=== PATIENT | female | born 1965 | race African-American/Black ===

== ENCOUNTER 2017-01-29 15:25 | Emergency (ER) | payer BC ==
[~2017-01-29] VITALS: Ht 167.6 cm; Wt 82.6 kg
--- NOTE | 2017-01-29 16:16 | EKG ---
[address] [place] [address] Test Date: 2017-01-29 Test Time: 15:30:27 Pat Name: KIMBERLY OLIVER Department: Room: Gender: F Freight Forwarder: : 1965 Requested By: ROMA BENITEZ Order Number: [id number] Reading MD: Measurements Intervals Gonzales Rate: 101 P: 35 HI: 170 QRS: 26 QRSD: 80 T: 24 QT: 378 QTc: 491 Interpretive Statements SINUS TACHYCARDIA LEFT ATRIAL ABNORMALITY T ABNORMALITY IN ANTEROSEPTAL LEADS ABNORMAL ECG RI6.01 No previous ECG available for comparison
[2017-01-29 16:46] LABS: BASO % 1 % (0-3); EOS % 1 % (0-3); HEMATOCRIT 44.4 % (36.0-47.0); HEMOGLOBIN 14.9 g/dL (12.0-15.5); LYMPH # 2.2 x10^3/uL (1.0-4.8); LYMPH % 28 % (24-48); MEAN CORPUSCULAR HEMOGLOBIN 34 pg (25-35); MEAN CORPUSCULAR HGB CONC 34 g/dL (31-37); MEAN CORPUSCULAR VOLUME 102 fL (79-100); MONO % 9 % (0-9); NEUT % 61 % (31-73); PLATELET COUNT 138 x10^3/uL (140-400); RED BLOOD COUNT 4.36 x10^6/uL (3.50-5.40); RED CELL DISTRIBUTION WIDTH 12.3 % (11.5-14.5); WHITE BLOOD COUNT 7.6 x10^3/uL (4.0-11.0)
[2017-01-29] MEDS ORDERED: LABETALOL 20 MG/4 ML DISP.SYRIN. IVP ONE (17:00)
[2017-01-29] MEDS ORDERED: ASPIRIN 81 MG TAB.CHEW PO ONE (17:00)
[2017-01-29 17:53] LABS: CALCIUM 9.9 mg/dL (8.5-10.1); CREATININE 0.6 mg/dL (0.6-1.0); GFR 128.6; MAGNESIUM 1.6 mg/dL (1.8-2.4); POTASSIUM 3.3 mmol/L (3.5-5.1)
[2017-01-29 18:16] LABS: NEG OBC UR NEG; POS OBC UR POS
--- NOTE | 2017-01-29 19:25 | PHYS DOC ---
Past Medical History Past Medical History: Hypertension Past Surgical History: Alcohol Use: Occasionally Drug Use: None Adult General Chief Complaint Chief Complaint: OTHER COMPLAINTS HPI HPI Patient is a 51 year old female who presents with palpitations and abnormal EKG. Patient seen at Dr. Reaves's office this afternoon, was sent to the emergency department after EKG showed nonspecific ST changes. Patient denies any chest discomfort or shortness of breath. She does report having some nausea every day for the past 2 or 3 months; she has not taken anything for the symptoms as the nausea will always quickly resolved on its own. Patient noted to be hypertensive on arrival. She says she is prescribed to hypertension medications. She is taking her metoprolol but not taking amlodipine. Patient is a nonsmoker. She does have family history of heart disease. She has had 324 mg of aspirin between what she took at home when she is given in the doctor's office today. Review of Systems Review of Systems Constitutional: Denies fever or chills Eyes: Denies change in visual acuity or eye pain HENT: Denies nasal congestion or sore throat Respiratory: Denies cough or shortness of breath Cardiovascular: Palpitations. Denies chest pain GI: Intermittent nausea. Denies abdominal pain, vomiting, bloody stools or diarrhea : Denies dysuria or hematuria Musculoskeletal: Denies back pain or joint pain Integument: Denies rash or skin lesions Neurologic: Denies headache, focal weakness or sensory changes Current Medications Current Medications Current Medications Medications (Trade) Dose Ordered Sig/Raheem Start Time Stop Time Status Last Admin Dose Admin Aspirin (Children'S Aspirin) 324 mg 1X ONCE 01/29/17 17:00 01/29/17 17:01 DC Labetalol HCl (Normodyne) 20 mg 1X ONCE 01/29/17 17:00 01/29/17 17:01 DC 01/29/17 17:01 20 MG Magnesium Oxide (Magnesium Oxide) 400 mg 1X ONCE 01/29/17 19:45 01/29/17 19:46 01/29/17 19:38 400 MG Potassium Chloride (Klor-Con) 40 meq 1X ONCE 01/29/17 19:45 01/29/17 19:46 01/29/17 19:38 40 MEQ Allergies Allergies Allergies Coded Allergies Type Severity Reaction Last Updated Verified Penicillins Allergy Unknown Rash 01/29/17 Yes codeine Allergy Unknown Nausea and Vomiting 01/29/17 Yes erythromycin base Allergy Unknown Nausea and Vomiting 01/29/17 Yes Physical Exam Physical Exam Constitutional: Well developed, well nourished, no acute distress, non-toxic appearance HENT: Normocephalic, atraumatic, bilateral external ears normal Eyes: EOMI, conjunctiva normal, no discharge Neck: Normal range of motion, no stridor Cardiovascular: Heart rate normal, regular rhythm, no murmur Lungs & Thorax: Bilateral breath sounds clear to auscultation Abdomen: Bowel sounds normal, soft, non-distended, no TTP Skin: Warm, dry, no erythema, no rash Extremities: No obvious deformity, no edema Neurologic: Alert and oriented X 3, no gross deficits noted Current Patient Data Vital Signs Vital Signs Date Time Temp Pulse Resp B/P Pulse Ox O2 Delivery O2 Flow Rate FiO2 01/29/17 19:30 111 20 163/97 98 Room Air Lab Values Laboratory Tests Test 01/29/17 15:32 01/29/17 15:45 01/29/17 17:30 Urine Test Negative (NEG) White Blood Count 7.6x10^3/uL (4.0-11.0) Red Blood Count 4.36x10^6/uL (3.50-5.40) Hemoglobin 14.9g/dL (12.0-15.5) Hematocrit 44.4% (36.0-47.0) Mean Corpuscular Volume 102fL (79-100) H Mean Corpuscular Hemoglobin 34pg (25-35) Mean Corpuscular Hemoglobin Concent 34g/dL (31-37) Red Cell Distribution Width 12.3% (11.5-14.5) Platelet Count 138x10^3/uL (140-400) L Neutrophils (%) (Auto) 61% (31-73) Lymphocytes (%) (Auto) 28% (24-48) Monocytes (%) (Auto) 9% (0-9) Eosinophils (%) (Auto) 1% (0-3) Basophils (%) (Auto) 1% (0-3) Neutrophils # (Auto) 4.7x10^3uL (1.8-7.7) Lymphocytes # (Auto) 2.2x10^3/uL (1.0-4.8) Monocytes # (Auto) 0.7x10^3/uL (0.0-1.1) Eosinophils # (Auto) 0.0x10^3/uL (0.0-0.7) Basophils # (Auto) 0.0x10^3/uL (0.0-0.2) Sodium Level 138mmol/L (136-145) Potassium Level 3.3mmol/L (3.5-5.1) L Chloride Level 95mmol/L (98-107) L Carbon Dioxide Level 31mmol/L (21-32) Anion Gap 12 (6-14) Blood Urea Nitrogen 8mg/dL (7-20) Creatinine 0.6mg/dL (0.6-1.0) Estimated GFR (Cockcroft-Gault) 128.6 Glucose Level 251mg/dL (70-99) H Calcium Level 9.9mg/dL (8.5-10.1) Magnesium Level 1.6mg/dL (1.8-2.4) L Troponin I Quantitative 0.018ng/mL (0.000-0.055) Thyroid Stimulating Hormone (TSH) 2.643uIU/mL (0.358-3.74) Laboratory Tests 01/29/17 15:45 Laboratory Tests 01/29/17 17:30 EKG EKG EKG (my read): sinus rhythm, rate 101, normal axis, QTc 491ms, nonspecific ST/T changes Radiology/Procedures Radiology/Procedures CXR (my read): Subcentimeter nodule in R lower lung field. Otherwise no acute process. Course & Med Decision Making Course & Med Decision Making Pertinent Labs and Imaging studies reviewed. (See chart for details) Patient is 51-year-old female who presents from Dr. Reaves's office with report of abnormal EKG. Patient asymptomatic at this time. Will repeat EKG. Will also obtain chest x-ray, labs to evaluate. Dose of labetalol ordered for high blood pressure, however before the nurse gave it her blood pressure had improved. Labs notable for few mild electrolytes abnormalities, such as low magnesium and potassium. Oral replacement ordered. Troponin within normal limits. Imaging results as above. Discussed results with patient, who remains asymptomatic. Discussed with javi Johnson to send patient home and will have her follow up in his clinic as outpatient. Patient given strict return precautions. Dragon Disclaimer Dragon Disclaimer This electronic medical record was generated, in whole or in part, using a voice recognition dictation system. Departure Departure Impression: Primary Impression: Palpitations Disposition: 01 HOME, SELF-CARE Admitting Physician: Edwin Reaves Condition: STABLE Referrals: EDWIN REAVES MD (PCP) Patient Instructions: Palpitations Additional Instructions: Thank you for allowing us to provide care today in the Emergency Department. Schedule a follow up appointment with your primary care doctor. Return promptly to the Emergency Department if you develop any new or concerning symptoms, such as chest discomfort or shortness of breath. ROMA BENITEZ MD Jan 29, 2017 19:25
[2017-01-29 19:30] VITALS: BP 163/97
[2017-01-29] MEDS ORDERED: MAGNESIUM OXIDE 400 MG TABLET PO ONE (19:45)
[2017-01-29] MEDS ORDERED: POTASSIUM CHLORIDE 20 MEQ TABLET.ER. PO ONE (19:45)
--- NOTE | 2017-01-30 08:57 | RAD ---
Chest, 2 views, 01/29/2017: History: Palpitations The heart size and pulmonary vascularity are normal. There is mild tortuosity of the thoracic aorta. There is a dense nodule projected over the right lower chest which is probably of granulomatous origin. No acute infiltrates are seen. There is no evidence of pleural fluid. Moderate spurring is present in the spine. IMPRESSION: 1. Probable calcified granuloma in the right lung base. 2. No acute cardiopulmonary abnormality is detected.
== END 2017-01-29 19:45 | disposition home or self-care (01) ==
LOC: ER 15:25
DX: R00.2 Palpitations (principal); R11.0 Nausea; I10 Essential (primary) hypertension; Z88.0 Allergy status to penicillin; Z88.1 Allergy status to other antibiotic agents; Z88.5 Allergy status to narcotic agent
CPT/HCPCS: 36415; 71020; 80048; 81025; 83735; 84443; 84484; 85027; 93005; 96374; 99285; J3490

== ENCOUNTER → 2017-02-26 | Outpatient (CLI) | payer BC ==
[2017-01-29 19:30] VITALS: BP 163/97
--- NOTE | 2017-02-26 15:36 | CARD ---
APPROVED REPORT EXAM: Two-dimensional and M-mode echocardiogram with Doppler and color Doppler. Other Information Quality : GoodHR: 92bpm Rhythm : NSR INDICATION Abnormal ECG 2D DIMENSIONS RVDd3.4 (2.9-3.5cm)Left Atrium(2D)2.9 (1.6-4.0cm) IVSd0.9 (0.7-1.1cm)Aortic Root(2D)3.3 (2.0-3.7cm) LVDd5.7 (3.9-5.9cm)LVOT Diameter2.4 (1.8-2.4cm) PWd1.0 (0.7-1.1cm)LVDs3.8 (2.5-4.0cm) FS (%) 33.3 %SV97.7 ml LVEF(%)61.2 (>50%) Aortic Valve AoV Peak [place].108.8cm/sAoV VTI19.5cm AO Peak GR.4.7mmHgLVOT Peak [place].99.0cm/s LVOT VTI 15.72cmAO Mean GR.3mmHg MILES (VMAX)4.78nt0WBM (VTI)3.71cm2 Mitral Valve MV E Cpbtaykl06.6cm/sMV DECEL SMQH07et MV A Dbtvpoto04.8cm/sMV E Mean Gr.2mmHg MV URY50txU/A Ratio0.6 MV A Emittikn279doPXB (PHT)8.93cm2 TDI E/Lateral E'8.2E/Medial E'13.4 Pulmonary Valve PV Peak Ohhyvctp59.0cm/sPV Peak Grad.2mmHg RVOT VTI11.4cm Tricuspid Valve TR P. Mqxqstzd836qx/sRAP XBRFLODZ12fiIo TR Peak Gr.21mmHg Pulmonary Vein S1 Nxhujvvh84.8cm/sD2 Fanihjso91.6cm/s PVa dquiqthz30uwla LEFT VENTRICLE The left ventricle is normal size. There is normal left ventricular wall thickness. Left ventricle sy stolic function is normal. The Ejection Fraction is 55-60%. There is normal LV segmental wall motion. Transmitral Doppler flow pattern is Grade I-abnormal relaxation pattern. There is no ventricular sep rodolfo defect visualized. RIGHT VENTRICLE The right ventricle is normal size. The right ventricular systolic function is normal. ATRIA The left atrium size is normal. The right atrium size is normal. The interatrial septum is intact wit h no evidence for an atrial septal defect or patent foramen ovale as noted on 2-D or Doppler imaging. AORTIC VALVE The aortic valve is normal in structure and function. Doppler and Color Flow revealed no significant aortic regurgitation. There is no significant aortic valvular stenosis. MITRAL VALVE The mitral valve is normal in structure and function. There is no evidence of mitral valve prolapse. There is no mitral valve stenosis. Doppler and Color Flow revealed no mitral valve regurgitation note d. TRICUSPID VALVE The tricuspid valve is normal in structure and function. Doppler and Color Flow revealed trace to mil d tricuspid regurgitation. The PA pressure was estimated at 24 mmHg. PULMONIC VALVE The pulmonary valve is normal in structure and function. Doppler and Color Flow revealed trace to mil d pulmonic valvular regurgitation. There is no pulmonic valvular stenosis. GREAT VESSELS The aortic root is normal in size. The ascending aorta is normal in size. Normal pulmonary venous andre w (Doppler). The IVC is normal in size and collapses >50% with inspiration. PERICARDIAL EFFUSION There is no pleural effusion. There is no evidence of significant pericardial effusion. Critical Notification Critical Value: No <Conclusion> The left ventricle is normal size. Left ventricle systolic function is normal. The Ejection Fraction is 55-60%. There is no significant aortic valvular stenosis. Doppler and Color Flow revealed no significant aortic regurgitation. Doppler and Color Flow revealed no mitral valve regurgitation noted. Doppler and Color Flow revealed trace to mild tricuspid regurgitation. The PA pressure was estimated at 24 mmHg. Doppler and Color Flow revealed trace to mild pulmonic valvular regurgitation.
== END | disposition home or self-care (01) ==
LOC: ECHO 11:00
PROVIDERS: ATTEND Nurse Practitioner
DX: I07.1 Rheumatic tricuspid insufficiency (principal)
CPT/HCPCS: 93306

== ENCOUNTER → 2019-02-19 | Outpatient (CLI) | payer BC ==
--- NOTE | 2019-02-19 10:49 | RAD ---
DATE: 02/19/2019 EXAM: MAMMO CHANEL SCREENING BILATERAL HISTORY: Screening COMPARISON: None This study was interpreted with the benefit of Computerized Aided Detection (CAD). Breast Density: FATTY The breast parenchyma is primarily fatty replaced. Breast parenchyma level density A. FINDINGS: Lymph node is present at the far posterior right cc view. No suspicious calcifications or mass. No distortion. IMPRESSION: No suspicious finding. BI-RADS CATEGORY: 1 NEGATIVE RECOMMENDED FOLLOW-UP: 12M 12 MONTH FOLLOW-UP PQRS compliance statement: Patient information was entered into a reminder system with a target due date in one year for the next mammogram. Mammography is a sensitive method for finding small breast cancers, but it does not detect them all and is not a substitute for careful clinical examination. A negative mammogram does not negate a clinically suspicious finding and should not result in delay in biopsying a clinically suspicious abnormality. "Our facility is accredited by the [employer] Mammography Program."
== END | disposition home or self-care (01) ==
LOC: MAMMO 08:38
PROVIDERS: ATTEND Internal Medicine
DX: Z12.31 Encounter for screening mammogram for malignant neoplasm of breast (principal)
CPT/HCPCS: 77063; 77067

== ENCOUNTER 2021-03-08 16:26 | Inpatient (IN) | payer BC ==
[~2021-03-08] VITALS: Ht 167.6 cm; Wt 83.2 kg
[2021-03-08 18:38] LABS: BASO # 0.1 x10^3/uL (0.0-0.2); BASO % 1 % (0-3); EOS % 0 % (0-3); HEMATOCRIT 38.4 % (36.0-47.0); HEMOGLOBIN 13.2 g/dL (12.0-15.5); LYMPH # 1.8 x10^3/uL (1.0-4.8); LYMPH % 19 % (24-48); MEAN CORPUSCULAR HEMOGLOBIN 36 pg (25-35); MEAN CORPUSCULAR HGB CONC 35 g/dL (31-37); MEAN CORPUSCULAR VOLUME 103 fL (79-100); MONO # 0.6 x10^3/uL (0.0-1.1); MONO % 6 % (0-9); NEUT # 6.7 x10^3/uL (1.8-7.7); NEUT % 74 % (31-73); PLATELET COUNT 188 x10^3/uL (140-400); RED BLOOD COUNT 3.71 x10^6/uL (3.50-5.40); RED CELL DISTRIBUTION WIDTH 13.3 % (11.5-14.5); WHITE BLOOD COUNT 9.2 x10^3/uL (4.0-11.0)
[2021-03-08 18:39] LABS: BILIRUBIN,URINE SMALL (NEG); CLARITY,URINE CLEAR; COLOR,URINE AMBER; NITRITE,URINE NEGATIVE (NEG); PH,URINE 8.5 (<5.0-8.0); PROTEIN,URINE >=300 mg/dL (NEG-TRACE)
[2021-03-08] MEDS ORDERED: fentaNYL PF VIAL 100 MCG/2 ML VIAL IV ONE (19:00)
[2021-03-08] MEDS ORDERED: IV NORMAL SALINE 1000ML BAG 1,000 ML IV ONE (19:00)
[2021-03-08] MEDS ORDERED: ONDANSETRON PF 4 MG/2 ML VIAL. IV ONE (19:00)
[2021-03-08 19:03] LABS: HYALINE CASTS, URINE MODERATE /HPF
[2021-03-08 19:04] LABS: BACTERIA,URINE FEW /HPF (0-FEW)
[2021-03-08 19:06] LABS: CALCIUM 8.6 mg/dL (8.5-10.1); CREATININE 0.7 mg/dL (0.6-1.0); GFR 105.5
[2021-03-08 19:16] LABS: ALBUMIN 4.2 g/dL (3.4-5.0); ALBUMIN/GLOBULIN RATIO 0.8 (1.0-1.7); TOTAL BILIRUBIN 1.3 mg/dL (0.2-1.0); TOTAL PROTEIN 9.4 g/dL (6.4-8.2)
[2021-03-08] MEDS ORDERED: CONTRAST GIVEN. MC PRN (19:45)
[2021-03-08] MEDS ORDERED: IOHEXOL 300 MG/ML 100ML VIAL. IV ONE (19:45)
[2021-03-08] MEDS ORDERED: PROCHLORPERAZINE 10 MG/2 ML VIAL. ONE (19:52)
[2021-03-08] MEDS ORDERED: PROCHLORPERAZINE 10 MG/2 ML VIAL. IV ONE (20:00)
--- NOTE | 2021-03-08 20:20 | RAD ---
EXAM: CT Abdomen and Pelvis with IV contrast CLINICAL HISTORY: epigastric, RUQ abd pain COMPARISON: none TECHNIQUE: Helical CT of the abdomen and pelvis was performed following the administration of intrave nous contrast. Axial, coronal and sagittal reformatted images were generated. PQRS compliance statement - One or more of the following individualized dose reduction techniques wer e utilized for this study: 1. Automated exposure control 2. Adjustment of the mA and/or kV according to patient size 3. Use of iterative reconstruction technique FINDINGS: Lower Chest: Calcified granuloma middle lobe. Lung bases are otherwise clear. Abdomen and Pelvis: Hepatic hypoattenuation, fatty liver. Liver is enlarged. Gallbladder is normal. No biliary ductal dil atation. Pancreas is normal. Spleen is unremarkable. Adrenal glands are normal. Symmetric nephrograms . No focal renal lesion. No hydronephrosis. No hydroureter. Bladder is unremarkable. Moderate colonic stool content is seen. No small or large bowel dilatation. No bowel obstruction. Ana Maria endix is not seen although no significant pericecal inflammatory changes are seen. No abdominal or pelvic ascites. No abdominal or pelvic lymphadenopathy. Degenerative changes of lower lumbar spine are seen. No aggressive osseous lesion. Bones: No aggressive osseous lesion is seen. Hip joint degenerative changes are seen. IMPRESSION: 1. Hepatic hypoattenuation, fatty liver. Hepatomegaly. 2. High density material dependently within the gallbladder likely sludge. 3. Moderate colonic stool content can be correlated for possible constipation. 4. No bowel obstruction. Electronically signed by: Jad Sr MD (03/08/2021 8:18 PM) [facility]
[2021-03-08] MEDS ORDERED: MAGNESIUM SULFATE 2GM 50 ML IV ONE ×2 (20:30→21:30)
[2021-03-08] MEDS ORDERED: ONDANSETRON PF 4 MG/2 ML VIAL. IV PRN (21:15)
--- NOTE | 2021-03-08 22:01 | RAD ---
EXAM: RIGHT UPPER QUADRANT ULTRASOUND. HISTORY: Right upper quadrant pain. COMPARISON: Today's CT. FINDINGS: Sonographic evaluation of the right upper quadrant was performed. Hyperechogenicity of the hepatic parenchyma indicates severe diffuse hepatic steatosis. The liver is enlarged measuring 23 cm. There are no focal lesions. The gallbladder is unremarkable without evidence of stones, wall thickening or pericholecystic fluid. There is no sonographic Oneal sign. The common duct measures 4 mm. The pancreas is obscured by bow el gas and overlying structures. It is unremarkable on today's CT. The right kidney measures 13.2 cm. Cortical thickness and echogenicity are preserved. There is no hyd ronephrosis. The visualized portions of the abdominal aorta and inferior vena cava are grossly patent and normal i n caliber. IMPRESSION: 1. Severe diffuse hepatic steatosis. Moderate hepatomegaly. 2. Negative gallbladder. Electronically signed by: Herb Dykes MD (03/08/2021 9:59 PM) [facility]
--- NOTE | 2021-03-08 23:52 | ED.ADGEN ---
Past Medical History Past Medical History: Diabetes-Type II, High Cholesterol, Hypertension Past Surgical History: , Tubal ligation Smoking Status: Never Smoker Alcohol Use: Heavy Additional Information: LIQUOR EVERYDAY-TEQUILA Drug Use: None General Adult EDM: Chief Complaint: NAUSEA/VOMITING/DIARRHEA HPI: HPI: Patient is a 56 year old AA female who presents to the ER from her PCP, Dr. Chavez's office, with complaints of epigastric and RUQ abd pain, nausea, vom iting, and diarrhea for the last 3 days. Pt states she always has diarrhea due to her Metformin use but states she has not been taking her Metformin for the last few days due to vomtiing and the diarrhea persists. Pt denies any blood in her vomit or stools. Pt states she has not been able to keep food or liquids down for the last 3 days. She denies any fever, lower abdominal pain, dysuria, hematuria, increased urinary frequency, back pain, chest pain, palpitations, headache, numbness, tingling, or weakness. She denies any shortness of breath, wheezing, chest pain, or indigestion. She currently rates her pain a 8/10 on the pain scale, she denies any alleviating or exacerbating factors. Review of Systems: Review of Systems: Complete ROS is negative unless otherwise stated in the HPI Current Medications: Current Medications Medications (Trade) Dose Ordered Sig/Raheem Start Time Stop Time Status Last Admin Dose Admin Fentanyl Citrate (Fentanyl 2ml Vial) 50 mcg 1X ONCE 03/08/21 19:00 03/08/21 19:01 DC 03/08/21 19:35 50 MCG Info (CONTRAST GIVEN -- Rx MONITORING) 1 each PRN DAILY PRN 03/08/21 19:45 03/10/21 19:44 Iohexol (Omnipaque 300 Mg/ml) 75 ml 1X ONCE 03/08/21 19:45 03/08/21 19:46 DC Magnesium Sulfate 50 ml @ 25 mls/hr 1X ONCE 03/08/21 20:30 03/08/21 22:29 DC 03/08/21 21:06 25 MLS/HR Ondansetron HCl (Zofran) 4 mg 1X ONCE 03/08/21 19:00 03/08/21 19:01 DC 03/08/21 19:36 4 MG Prochlorperazine Edisylate (Compazine) 10 mg 1X ONCE 03/08/21 20:00 03/08/21 20:01 DC 03/08/21 19:59 10 MG Sodium Chloride 1,000 ml @ 1,000 mls/hr 1X ONCE 03/08/21 19:00 03/08/21 19:59 DC 03/08/21 19:36 1,000 MLS/HR Physical Exam: PE: Constitutional: Well developed, well nourished, no acute distress, non-toxic appearance. [] HENT: Normocephalic, atraumatic, bilateral external ears normal, oropharynx moist, no oral exudates, nose normal. [] Eyes: PERRLA, EOMI, conjunctiva normal, no discharge. [] Neck: Normal range of motion, no tenderness, supple, no stridor. [] Cardiovascular:Heart rate regular rhythm, no murmur [] Lungs & Thorax: Bilateral breath sounds clear to auscultation [] Abdomen: Bowel sounds normal, soft, no tenderness, no masses, no pulsatile masses. [] Skin: Warm, dry, no erythema, no rash. [] Back: No tenderness, no CVA tenderness. [] Extremities: No tenderness, no cyanosis, no clubbing, ROM intact, no edema. [] Neurologic: Alert and oriented X 3, normal motor function, normal sensory function, no focal deficits noted. [] Psychologic: Affect normal, judgement normal, mood normal. [] Current Patient Data: Labs: Laboratory Tests Test 03/08/21 17:33 White Blood Count 9.2 x10^3/uL (4.0-11.0) Red Blood Count 3.71 x10^6/uL (3.50-5.40) Hemoglobin 13.2 g/dL (12.0-15.5) Hematocrit 38.4 % (36.0-47.0) Mean Corpuscular Volume 103 fL (79-100) H Mean Corpuscular Hemoglobin 36 pg (25-35) H Mean Corpuscular Hemoglobin Concent 35 g/dL (31-37) Red Cell Distribution Width 13.3 % (11.5-14.5) Platelet Count 188 x10^3/uL (140-400) Neutrophils (%) (Auto) 74 % (31-73) H Lymphocytes (%) (Auto) 19 % (24-48) L Monocytes (%) (Auto) 6 % (0-9) Eosinophils (%) (Auto) 0 % (0-3) Basophils (%) (Auto) 1 % (0-3) Neutrophils # (Auto) 6.7 x10^3/uL (1.8-7.7) Lymphocytes # (Auto) 1.8 x10^3/uL (1.0-4.8) Monocytes # (Auto) 0.6 x10^3/uL (0.0-1.1) Eosinophils # (Auto) 0.0 x10^3/uL (0.0-0.7) Basophils # (Auto) 0.1 x10^3/uL (0.0-0.2) Urine Collection Type Unknown Urine Color Carol Urine Clarity Clear Urine pH 8.5 (<5.0-8.0) Urine Specific [place] 1.020 (1.000-1.030) Urine Protein >=300 mg/dL (NEG-TRACE) Urine Glucose (UA) Negative mg/dL (NEG) Urine Ketones (Stick) Trace mg/dL (NEG) Urine Blood Negative (NEG) Urine Nitrite Negative (NEG) Urine Bilirubin Small (NEG) Urine Urobilinogen Dipstick 1.0 mg/dL (0.2 mg/dL) Urine Leukocyte Esterase Small (NEG) Urine RBC 3-5 /HPF (0-2) Urine WBC 5-10 /HPF (0-4) Urine Squamous Epithelial Cells Many /LPF Urine Bacteria Few /HPF (0-FEW) Urine Hyaline Casts Moderate /HPF Urine Mucus Marked /LPF Sodium Level 141 mmol/L (136-145) Potassium Level 3.0 mmol/L (3.5-5.1) L Chloride Level 98 mmol/L (98-107) Carbon Dioxide Level 31 mmol/L (21-32) Anion Gap 12 (6-14) Blood Urea Nitrogen 5 mg/dL (7-20) L Creatinine 0.7 mg/dL (0.6-1.0) Estimated GFR (Cockcroft-Gault) 105.5 BUN/Creatinine Ratio 7 (6-20) Glucose Level 176 mg/dL (70-99) H Calcium Level 8.6 mg/dL (8.5-10.1) Magnesium Level 1.0 mg/dL (1.8-2.4) L Total Bilirubin 1.3 mg/dL (0.2-1.0) H Aspartate Amino Transferase (AST) 90 U/L (15-37) H Alanine Aminotransferase (ALT) 61 U/L (14-59) H Alkaline Phosphatase 103 U/L (46-116) Total Protein 9.4 g/dL (6.4-8.2) H Albumin 4.2 g/dL (3.4-5.0) Albumin/Globulin Ratio 0.8 (1.0-1.7) L Lipase 173 U/L (73-393) Laboratory Tests 03/08/21 17:33 Laboratory Tests 03/08/21 17:33 Vital Signs: Vital Signs Date Time Temp Pulse Resp B/P (MAP) Pulse Ox O2 Delivery O2 Flow Rate FiO2 03/08/21 20:53 107 17 151/92 (111) 98 Nasal Cannula 2.0 03/08/21 17:29 98.6 98.6 EKG: EKG: [] Heart Score: C/O Chest Pain: No Risk Factors: Risk Factors: DM, Current or recent (<one month) smoker, HTN, HLP, family history of CAD, obesity. Risk Scores: Score 0 - 3: 2.5% MACE over next 6 weeks - Discharge Home Score 4 - 6: 20.3% MACE over next 6 weeks - Admit for Clinical Observation Score 7 - 10: 72.7% MACE over next 6 weeks - Early Invasive Strategies Radiology/Procedures: Radiology/Procedures: PROCEDURE: ABDOMEN LTD EXAM: RIGHT UPPER QUADRANT ULTRASOUND. HISTORY: Right upper quadrant pain. COMPARISON: Today's CT. FINDINGS: Sonographic evaluation of the right upper quadrant was performed. Hyperechogenicity of the hepatic parenchyma indicates severe diffuse hepatic steatosis. The liver is enlarged measuring 23 cm. There are no focal lesions. The gallbladder is unremarkable without evidence of stones, wall thickening or pericholecystic fluid. There is no sonographic Oneal sign. The common duct measures 4 mm. The pancreas is obscured by bowel gas and overlying structures. It is unremarkable on today's CT. The right kidney measures 13.2 cm. Cortical thickness and echogenicity are preserved. There is no hydronephrosis. The visualized portions of the abdominal aorta and inferior vena cava are grossly patent and normal in caliber. IMPRESSION: 1. Severe diffuse hepatic steatosis. Moderate hepatomegaly. 2. Negative gallbladder. PROCEDURE: CT ABD PELV W/ IV CONTRST ONLY EXAM: CT Abdomen and Pelvis with IV contrast CLINICAL HISTORY: epigastric, RUQ abd pain COMPARISON: none TECHNIQUE: Helical CT of the abdomen and pelvis was performed following the administration of intravenous contrast. Axial, coronal and sagittal reformatted images were generated. PQRS compliance statement - One or more of the following individualized dose reduction techniques were utilized for this study: 1. Automated exposure control 2. Adjustment of the mA and/or kV according to patient size 3. Use of iterative reconstruction technique FINDINGS: Lower Chest: Calcified granuloma middle lobe. Lung bases are otherwise clear. Abdomen and Pelvis: Hepatic hypoattenuation, fatty liver. Liver is enlarged. Gallbladder is normal. No biliary ductal dilatation. Pancreas is normal. Spleen is unremarkable. Adrenal glands are normal. Symmetric nephrograms. No focal renal lesion. No hydronephrosis. No hydroureter. Bladder is unremarkable. Moderate colonic stool content is seen. No small or large bowel dilatation. No bowel obstruction. Appendix is not seen although no significant pericecal inflammatory changes are seen. No abdominal or pelvic ascites. No abdominal or pelvic lymphadenopathy. Degenerative changes of lower lumbar spine are seen. No aggressive osseous lesion. Bones: No aggressive osseous lesion is seen. Hip joint degenerative changes are seen. IMPRESSION: 1. Hepatic hypoattenuation, fatty liver. Hepatomegaly. 2. High density material dependently within the gallbladder likely sludge. 3. Moderate colonic stool content can be correlated for possible constipation. 4. No bowel obstruction. Electronically signed by: Jad Sr MD (03/08/2021 8:18 PM) [facility] [] Course & Med Decision Making: Course & Med Decision Making Pertinent Labs and Imaging studies reviewed. (See chart for details) spoke with Dr. Chavez and advised of pt's labs and CT result. US of upper abd is pending. Pt continues to complain of epigastric pain and nausea. Will admit pt to med/tele for hypokalemia, hypomagnesia, nausea/vomiting, and upper abd pain. Will order another 2gm of IV magnesium and NS with 20 meq of KCL TRA 125 ml/hr. Repeat BMP and Magnesium at 0600. [] Fedeon Disclaimer: Margie Disclaimer: This electronic medical record was generated, in whole or in part, using a voice recognition dictation system. Departure Departure Impression: Primary Impression: Hypokalemia Additional Impressions: Hypomagnesemia Nausea & vomiting Upper abdominal pain Disposition: ADMITTED INPATIENT Admitting Physician: Sam Chavez Condition: STABLE Referrals: SAM CHAVEZ MD (PCP) Attending Signature Attending Signature I have participated in the care of this patient and I have reviewed and agree with all pertinent clinical information above including history, exam, and recommendations. Problem Qualifiers Additional Impressions: Nausea & vomiting Vomiting type: unspecified Vomiting Intractability: intractable Qualified Codes: R11.2 - Nausea with vomiting, unspecified ANTHONY ESPITIA [employer] Mar 08, 2021 23:52 WALI SCHULTZ DO Mar 09, 2021 13:21
[2021-03-08 23:55] VITALS: BP 122/84
[2021-03-09 03:02] VITALS: BP 140/96
[2021-03-09] MEDS ORDERED: AMLO-187 PO (04:02)
[2021-03-09] MEDS ORDERED: SITA100T PO (04:02)
[2021-03-09] MEDS ORDERED: GLIP5TAB10 PO (04:02)
[2021-03-09] MEDS ORDERED: ATOR20TA58 PO (04:02)
[2021-03-09] MEDS ORDERED: DULO30CA2 PO (04:02)
[2021-03-09 07:00] VITALS: BP 143/89
[2021-03-09 09:14] LABS: CALCIUM 7.5 mg/dL (8.5-10.1); CREATININE 0.6 mg/dL (0.6-1.0); GFR 126.1; POTASSIUM 3.4 mmol/L (3.5-5.1)
[2021-03-09] MEDS ORDERED: PROCHLORPERAZINE 10 MG/2 ML VIAL. IV PRN (09:30)
[2021-03-09] MEDS ORDERED: MAGNESIUM SULFATE 2GM 50 ML IV ONE (10:00)
[2021-03-09] MEDS: INSULIN LISPRO 300 UNITS/3 ML VIAL. SQ SCH ×2 (10:00→11:44)
--- NOTE | 2021-03-09 10:00 | PDOC ---
Provider Note Date of Service: DATE: 03/09/21 TIME: 09:59 Provider Note H&P dictated #[id number] Justifications for Admission Other Justification SAM REAVES MD Mar 09, 2021 10:00
[2021-03-09] MEDS: POTASSIUM CL 40MEQ D5-0.45NACL 1,000 ML IV SCH ×2 (10:26→21:28)
--- NOTE | 2021-03-09 10:45 | HP ---
ADMIT DATE: 03/08/2021 HISTORY OF PRESENT ILLNESS: This is a 56 years old -Italian female who has a history of alcoholism, stopped drinking alcohol on Sunday, but continued to have increased abdominal pain, intractable nausea, vomiting and diarrhea over the weekend. She has not been able to eat for the last 3 days. She came to the office yesterday and was continuously dry heaving. Because of the persistent nausea, vomiting and abdominal pain, the patient was sent to the Emergency Room. In the Emergency Room, the patient was noted to have a potassium of 3, magnesium of 1, AST 90, ALT 61, alkaline phosphatase 103, total protein 9.4, albumin 4.2, lipase 173, glucose 176, sodium 141, BUN 5, creatinine 0.7. WBC count was 9.2, hemoglobin 13.2, MCV 103. Urinalysis: Nitrite negative, 5-10 WBCs, few bacteria. CT scan of abdomen and pelvis showed hepatic hypoattenuation with fatty liver and hepatomegaly, high density material dependently within the gallbladder, likely sludge and moderate colonic stool. No bowel obstruction. Sonogram of the abdomen showed severe diffuse hepatic steatosis, moderate hepatomegaly. Negative gallbladder. Because of the intractable nausea and vomiting, including in the Emergency Room, where she did not respond to IV Zofran and was also given IV Compazine along with electrolyte imbalance and alcoholism, the patient was admitted for further evaluation and management. SYSTEMS REVIEW: The patient's nausea and vomiting are improving. Yesterday, she was given 4 g of IV magnesium and also IV fluids with potassium. She feels a little shaky, but denies any anxiety. Her abdominal pain is improving. Her diarrhea is improving. She has not been taking metformin for several days. She denies any cold, cough, congestion, chest pains or palpitations. Other systems reviewed and are negative. PAST MEDICAL HISTORY: The patient has a history of hypertension, hypokalemia, vitamin B12 deficiency, diabetes mellitus and alcoholism. She has a history of hyperlipidemia as well as depression. PAST SURGICAL HISTORY: She had a . ALLERGIES: THE PATIENT IS ALLERGIC TO CODEINE, ERYTHROMYCIN BASE AND PENICILLIN. FAMILY HISTORY: Brother has coronary artery disease, premature. Father had hypertension, diabetes mellitus type 2. Mother has hypertension and diabetes mellitus too. SOCIAL HISTORY: No history of smoking. The patient has a history of alcoholism. MEDICATIONS: Include amlodipine 10 mg daily, atorvastatin 20 mg daily, biotin 1 mg daily, cyanocobalamin 5000 mcg sublingually daily, Cymbalta 30 mg daily, gabapentin 300 mg 3 capsules 3 times a day, glipizide 5 mg daily in a.m., hydrochlorothiazide 25 mg daily, Januvia 100 mg daily, magnesium oxide 400 mg 2 tablets t.i.d., metformin extended release 500 mg 1 tablet in a.m. and 2 tablets in p.m. with meals, potassium chloride 10 mEq daily, thiamine 100 mg daily. PHYSICAL EXAMINATION: VITAL SIGNS: Temperature max 99.2, pulse 102 per minute, respirations 16 per minute, blood pressure 155/90 mmHg on admission, now it is 143/80 mmHg. GENERAL: The patient is a middle-aged -Italian female who is alert, oriented x3, chronically ill and not in acute distress. EYES: Pupils reacting to light. Conjunctivae pale. Sclerae muddy. HENT: Unremarkable. NECK: Supple. JVP normal. No thyromegaly. Trachea midline. LUNGS: Clear. CARDIOVASCULAR: Tachycardia present. ABDOMEN: Soft, no tenderness this morning. No guarding, no rigidity. Bowel sounds present. Yesterday, she had significant tenderness in the epigastric area. EXTREMITIES: No edema. CENTRAL NERVOUS SYSTEM: Alert and oriented. There are no tremors. No anxiety. LABORATORY FINDINGS: As noted earlier. IMPRESSION: 1. Acute intractable vomiting. 2. Acute gastritis. 3. Severe hypomagnesemia. 4. Acute hypokalemia. 5. Hypertension. 6. Alcoholism. 7. Vitamin B12 deficiency. 8. Depression. 9. Hyperlipidemia. 10. Diabetes mellitus type 2. PLAN: 1. Alcoholism. Continue to monitor for withdrawal. IV lorazepam p.r.n. Correct electrolyte imbalance. Monitor for seizures. 2. Hypokalemia. Replace potassium. 3. Hypomagnesemia, replaced magnesium. 4. Diabetes mellitus type 2, monitor. The patient has not been taking metformin for some time. Hold glipizide, sliding scale insulin as needed. Monitor blood sugars. 5. Acute gastritis. 6. Fatty liver. Condition and treatment options and lab results and diagnostics discussed with the patient and the family. Consult Dr. Kimble for GI evaluation and management, discussed with Dr. Kimble. For details, please refer to the orders. I will also start her on IV Protonix. She is not a high risk for DVT at this time and with her intractable nausea and vomiting, I will not start her on subcutaneous heparin. For details, please refer to the orders. JW DR: Emilie TID: [id number]
[2021-03-09 11:00] VITALS: BP 153/103
--- NOTE | 2021-03-09 11:01 | PDOC2 ---
GI CONSULT Date of Service: DATE: 03/09/21 TIME: 10:52 Reason For Consult: vomiting HPI: HPI: 56 y/o female who has been ill since Sunday. Acute onset of n/v, denies precipitating events. Labs note macrocytosis, hypokalemia and hypomagnesemia, and abnormal LFTs. Imaging as below w/ fatty liver, possible GB sludge (on CT), moderate stool. No reflux, dysphagia, hematemesis, constipation, hematochezia, or melena. Has some epigastric discomfort currently. Some decreased appetite and a little weight loss over the past couple months. Chronically loose stools on metformin - this is basically stable, though mentions stool "comes out" at the same time as vomiting. No previous EGD or colonoscopy. No GB, pancreas, or PUD history. Just discussed fatty liver/hepatomegaly with primary doctor. NSAIDs in the past, stopped taking awhile ago. PMH: PMH: HTN, HLD, DM, depression , tubal ligation, CTR FH: Family History: No pertinent hx (no GI cancers) Social History: Smoke: No ALCOHOL: heavy (couple glasses daily) Drugs: None ROS: GEN: Denies fevers, chills, sweats HEENT: Denies blurred vision, sore throat CV: Denies chest pain RESP: Denies shortness of air, cough GI: Per HPI : Denies hematuria, dysuria ENDO: +weight loss NEURO: Denies confusion, dizziness MSK: Denies weakness, joint pain/swelling SKIN: Denies jaundice, pruritus Vitals: Vitals: Vital Signs Date Time Temp Pulse Resp B/P (MAP) Pulse Ox O2 Delivery O2 Flow Rate FiO2 03/09/21 08:30 Room Air 03/09/21 07:00 99.2 111 18 143/89 (107) 93 99.2 03/09/21 03:38 2.0 Labs: Labs: Laboratory Tests Test 03/08/21 17:33 03/09/21 07:50 03/09/21 08:00 White Blood Count 9.2 x10^3/uL (4.0-11.0) Red Blood Count 3.71 x10^6/uL (3.50-5.40) Hemoglobin 13.2 g/dL (12.0-15.5) Hematocrit 38.4 % (36.0-47.0) Mean Corpuscular Volume 103 fL (79-100) Mean Corpuscular Hemoglobin 36 pg (25-35) Mean Corpuscular Hemoglobin Concent 35 g/dL (31-37) Red Cell Distribution Width 13.3 % (11.5-14.5) Platelet Count 188 x10^3/uL (140-400) Neutrophils (%) (Auto) 74 % (31-73) Lymphocytes (%) (Auto) 19 % (24-48) Monocytes (%) (Auto) 6 % (0-9) Eosinophils (%) (Auto) 0 % (0-3) Basophils (%) (Auto) 1 % (0-3) Neutrophils # (Auto) 6.7 x10^3/uL (1.8-7.7) Lymphocytes # (Auto) 1.8 x10^3/uL (1.0-4.8) Monocytes # (Auto) 0.6 x10^3/uL (0.0-1.1) Eosinophils # (Auto) 0.0 x10^3/uL (0.0-0.7) Basophils # (Auto) 0.1 x10^3/uL (0.0-0.2) Urine Collection Type Unknown Urine Color Carol Urine Clarity Clear Urine pH 8.5 (<5.0-8.0) Urine Specific [place] 1.020 (1.000-1.030) Urine Protein >=300 mg/dL (NEG-TRACE) Urine Glucose (UA) Negative mg/dL (NEG) Urine Ketones (Stick) Trace mg/dL (NEG) Urine Blood Negative (NEG) Urine Nitrite Negative (NEG) Urine Bilirubin Small (NEG) Urine Urobilinogen Dipstick 1.0 mg/dL (0.2 mg/dL) Urine Leukocyte Esterase Small (NEG) Urine RBC 3-5 /HPF (0-2) Urine WBC 5-10 /HPF (0-4) Urine Squamous Epithelial Cells Many /LPF Urine Bacteria Few /HPF (0-FEW) Urine Hyaline Casts Moderate /HPF Urine Mucus Marked /LPF Sodium Level 141 mmol/L (136-145) 143 mmol/L (136-145) Potassium Level 3.0 mmol/L (3.5-5.1) 3.4 mmol/L (3.5-5.1) Chloride Level 98 mmol/L (98-107) 103 mmol/L (98-107) Carbon Dioxide Level 31 mmol/L (21-32) 32 mmol/L (21-32) Anion Gap 12 (6-14) 8 (6-14) Blood Urea Nitrogen 5 mg/dL (7-20) 4 mg/dL (7-20) Creatinine 0.7 mg/dL (0.6-1.0) 0.6 mg/dL (0.6-1.0) Estimated GFR (Cockcroft-Gault) 105.5 126.1 BUN/Creatinine Ratio 7 (6-20) Glucose Level 176 mg/dL (70-99) 175 mg/dL (70-99) Calcium Level 8.6 mg/dL (8.5-10.1) 7.5 mg/dL (8.5-10.1) Magnesium Level 1.0 mg/dL (1.8-2.4) 1.6 mg/dL (1.8-2.4) Total Bilirubin 1.3 mg/dL (0.2-1.0) Aspartate Amino Transf (AST/SGOT) 90 U/L (15-37) Alanine Aminotransferase (ALT/SGPT) 61 U/L (14-59) Alkaline Phosphatase 103 U/L (46-116) Total Protein 9.4 g/dL (6.4-8.2) Albumin 4.2 g/dL (3.4-5.0) Albumin/Globulin Ratio 0.8 (1.0-1.7) Lipase 173 U/L (73-393) Glucose (Fingerstick) 170 mg/dL (70-99) Allergies: Coded Allergies: Penicillins (Verified Allergy, Intermediate, Rash, 03/08/21) codeine (Verified Allergy, Mild, Nausea and Vomiting, 03/08/21) erythromycin base (Verified Allergy, Mild, Nausea and Vomiting, 03/08/21) Medications: Current Medications Medications (Trade) Dose Ordered Sig/Raheem Route PRN Reason Start Time Stop Time Status Last Admin Dose Admin Sodium Chloride 1,000 ml @ 1,000 mls/hr 1X ONCE IV 03/08/21 19:00 03/08/21 19:59 DC 03/08/21 19:36 Ondansetron HCl (Zofran) 4 mg 1X ONCE IV 03/08/21 19:00 03/08/21 19:01 DC 03/08/21 19:36 Fentanyl Citrate (Fentanyl 2ml Vial) 50 mcg 1X ONCE IV 03/08/21 19:00 03/08/21 19:01 DC 03/08/21 19:35 Prochlorperazine Edisylate (Compazine) 10 mg 1X ONCE IV 03/08/21 20:00 03/08/21 20:01 DC 03/08/21 19:59 Magnesium Sulfate 50 ml @ 25 mls/hr 1X ONCE IV 03/08/21 20:30 03/08/21 22:29 DC 03/08/21 21:06 Potassium Chloride/Sodium Chloride 1,000 ml @ 125 mls/hr Q8H IV 03/08/21 21:30 03/09/21 05:29 DC 03/08/21 22:43 Potassium Chloride/Dextrose/ Sod Cl 1,000 ml @ 100 mls/hr Q10H IV 03/09/21 10:00 03/09/21 10:26 Magnesium Sulfate 50 ml @ 25 mls/hr 1X ONCE IV 03/09/21 10:00 03/09/21 11:59 03/09/21 10:27 Imaging: Imaging: CT A/P IMPRESSION: 1. Hepatic hypoattenuation, fatty liver. Hepatomegaly. 2. High density material dependently within the gallbladder likely sludge. 3. Moderate colonic stool content can be correlated for possible constipation. 4. No bowel obstruction. Abd US IMPRESSION: 1. Severe diffuse hepatic steatosis. Moderate hepatomegaly. 2. Negative gallbladder. CBD 4mm. PE: GEN: NAD HEENT: Atraumatic, PERRL LUNGS: CTAB HEART: RRR ABD: NABS, S/ND, epigastric tenderness EXTREMITY: No edema SKIN: No rashes, no jaundice NEURO/PSYCH: A & O 3 A/P: A/P: N/v, epigastric pain - began 03/06 Macrocytosis, hypokalemia (better), hypomagnesemia (better), abnormal LFTs Decreased appetite, weight loss - ongoing CRC screen - none Chronic loose stools on metformin - stable Fatty liver/hepatomegaly Alcohol overuse, DM -- Agree w/ PPI. Will plan for EGD tomorrow. Check COVID per protocol. Can try clears today. Monitor for diarrhea, address if needed. Outpt screening colonoscopy. Should drink less. JENS SNYDER Mar 09, 2021 11:01
[2021-03-09] MEDS: PANTOPRAZOLE IV PUSH 40 MG VIAL. IVP SCH (11:34)
--- NOTE | 2021-03-09 11:48 | NUR ---
SW following. Discussed with RN, pt from home, room air, NPO. RN advised no SW needs at this time. SW will continue to follow.
[2021-03-09 15:00] VITALS: BP 173/110
[2021-03-09 19:00] VITALS: BP 151/97
[2021-03-09 23:32] VITALS: BP 157/99
[2021-03-10 03:16] VITALS: BP 121/79
[2021-03-10 06:34] LABS: BASO % 0 % (0-3); EOS # 0.1 x10^3/uL (0.0-0.7); EOS % 2 % (0-3); LYMPH # 1.3 x10^3/uL (1.0-4.8); LYMPH % 20 % (24-48); MEAN CORPUSCULAR HEMOGLOBIN 35 pg (25-35); MEAN CORPUSCULAR HGB CONC 33 g/dL (31-37); MEAN CORPUSCULAR VOLUME 105 fL (79-100); MONO # 0.4 x10^3/uL (0.0-1.1); MONO % 6 % (0-9); NEUT # 4.8 x10^3/uL (1.8-7.7); NEUT % 72 % (31-73); PLATELET COUNT 153 x10^3/uL (140-400); RED BLOOD COUNT 3.43 x10^6/uL (3.50-5.40); RED CELL DISTRIBUTION WIDTH 12.6 % (11.5-14.5); WHITE BLOOD COUNT 6.7 x10^3/uL (4.0-11.0)
[2021-03-10 07:00] VITALS: BP 131/88
[2021-03-10] MEDS ORDERED: IV RINGERS,LACTATED 1000ML 1,000 ML IV SCH (07:00)
[2021-03-10] MEDS: INSULIN LISPRO 300 UNITS/3 ML VIAL. SQ SCH (07:30)
[2021-03-10 08:31] LABS: ALBUMIN 3.5 g/dL (3.4-5.0); ALBUMIN/GLOBULIN RATIO 0.8 (1.0-1.7); CALCIUM 7.3 mg/dL (8.5-10.1); CREATININE 0.6 mg/dL (0.6-1.0); GFR 126.1; MAGNESIUM 1.4 mg/dL (1.8-2.4); POTASSIUM 3.5 mmol/L (3.5-5.1); TOTAL BILIRUBIN 1.2 mg/dL (0.2-1.0); TOTAL PROTEIN 7.9 g/dL (6.4-8.2)
[2021-03-10] MEDS: PANTOPRAZOLE IV PUSH 40 MG VIAL. IVP SCH (08:46)
[2021-03-10] MEDS: POTASSIUM CL 40MEQ D5-0.45NACL 1,000 ML IV SCH (08:46)
--- NOTE | 2021-03-10 10:18 | PDOC3 ---
IM DISCHARGE SUMMARY Date of Admission Date of Admission Date of Admission: Mar 08, 2021 at 21:04 Date of Discharge Date of Discharge March 10, 2021 Primary Diagnosis Primary Diagnosis 1. Acute intractable vomiting. 2. Acute gastritis. 3. Severe hypomagnesemia. 4. Acute hypokalemia. 5. Hypertension. 6. Alcoholism. 7. Vitamin B12 deficiency. 8. Depression. 9. Hyperlipidemia. 10. Diabetes mellitus type 2. Consults Consults Javed Kimble MD Procedures Procedures EGD Labs Labs Laboratory Tests Test 03/09/21 11:21 03/09/21 13:36 03/09/21 16:29 03/09/21 19:18 Glucose (Fingerstick) 177 mg/dL (70-99) H 182 mg/dL (70-99) H 200 mg/dL (70-99) H SARS-CoV-2 RNA (BRENDAN) Negative (Negative) SARS-CoV-2 Antigen (Rapid) Negative (NEGATIVE) Test 03/10/21 05:50 03/10/21 07:35 White Blood Count 6.7 x10^3/uL (4.0-11.0) Red Blood Count 3.43 x10^6/uL (3.50-5.40) L Hemoglobin 12.0 g/dL (12.0-15.5) Hematocrit 36.0 % (36.0-47.0) Mean Corpuscular Volume 105 fL (79-100) H Mean Corpuscular Hemoglobin 35 pg (25-35) Mean Corpuscular Hemoglobin Concent 33 g/dL (31-37) Red Cell Distribution Width 12.6 % (11.5-14.5) Platelet Count 153 x10^3/uL (140-400) Neutrophils (%) (Auto) 72 % (31-73) Lymphocytes (%) (Auto) 20 % (24-48) L Monocytes (%) (Auto) 6 % (0-9) Eosinophils (%) (Auto) 2 % (0-3) Basophils (%) (Auto) 0 % (0-3) Neutrophils # (Auto) 4.8 x10^3/uL (1.8-7.7) Lymphocytes # (Auto) 1.3 x10^3/uL (1.0-4.8) Monocytes # (Auto) 0.4 x10^3/uL (0.0-1.1) Eosinophils # (Auto) 0.1 x10^3/uL (0.0-0.7) Basophils # (Auto) 0.0 x10^3/uL (0.0-0.2) Sodium Level 139 mmol/L (136-145) Potassium Level 3.5 mmol/L (3.5-5.1) Chloride Level 100 mmol/L (98-107) Carbon Dioxide Level 29 mmol/L (21-32) Anion Gap 10 (6-14) Blood Urea Nitrogen 2 mg/dL (7-20) L Creatinine 0.6 mg/dL (0.6-1.0) Estimated GFR (Cockcroft-Gault) 126.1 BUN/Creatinine Ratio 3 (6-20) L Glucose Level 206 mg/dL (70-99) H Calcium Level 7.3 mg/dL (8.5-10.1) L Magnesium Level 1.4 mg/dL (1.8-2.4) L Total Bilirubin 1.2 mg/dL (0.2-1.0) H Aspartate Amino Transferase (AST) 125 U/L (15-37) H Alanine Aminotransferase (ALT) 66 U/L (14-59) H Alkaline Phosphatase 82 U/L (46-116) Total Protein 7.9 g/dL (6.4-8.2) Albumin 3.5 g/dL (3.4-5.0) Albumin/Globulin Ratio 0.8 (1.0-1.7) L Glucose (Fingerstick) 232 mg/dL (70-99) H Laboratory Tests 03/10/21 05:50 Laboratory Tests 03/10/21 05:50 Brief hospital course Brief hospital course This is a 56 years old -[place] female who has a history of alcoholism, stopped drinking alcohol on Sunday, but continued to have increased abdominal pain, intractable nausea, vomiting and diarrhea over the weekend. She has not been able to eat for the last 3 days. She came to the office yesterday and was continuously dry heaving. Because of the persistent nausea, vomiting and abdominal pain, the patient was sent to the Emergency Room. In the Emergency Room, the patient was noted to have a potassium of 3, magnesium of 1, AST 90, ALT 61, alkaline phosphatase 103, total protein 9.4, albumin 4.2, lipase 173, glucose 176, sodium 141, BUN 5, creatinine 0.7. WBC count was 9.2, hemoglobin 13.2, MCV 103. Urinalysis: Nitrite negative, 5-10 WBCs, few bacteria. CT scan of abdomen and pelvis showed hepatic hypoattenuation with fatty liver and hepatomegaly, high density material dependently within the gallbladder, likely sludge and moderate colonic stool. No bowel obstruction. Sonogram of the abdomen showed severe diffuse hepatic steatosis, moderate hepatomegaly. Negative gallbladder. Because of the intractable nausea and vomiting, including in the Emergency Room, where she did not respond to IV Zofran and was also given IV Compazine along with electrolyte imbalance and alcoholism, the patient was admitted for further evaluation and management. For more details regarding the past history, family history, social history, surgical history and other details, please refer to History and Physical. 1. Alcoholism. Continue to monitor for withdrawal. IV lorazepam p.r.n. Correct electrolyte imbalance. Monitor for seizures. 2. Hypokalemia. Replace potassium. 3. Hypomagnesemia, replaced magnesium. 4. Diabetes mellitus type 2, monitor. The patient has not been taking metformin for some time. Hold glipizide, sliding scale insulin as needed. Monitor blood sugars. 5. Acute gastritis. 6. Fatty liver. Condition and treatment options and lab results and diagnostics discussed with the patient and the family. Consult Dr. Kimble for GI evaluation and management, discussed with Dr. Kimble. For details, please refer to the orders. I will also start her on IV Protonix. at this time and with her intractable nausea and vomiting, Patient is going to have an EGD later today and the diet will be advanced after that. Magnesium level is 1.4 so we will replace magnesium. Potassium is 3.5. If she is able to tolerate diet after dinner then she will likely be discharged this evening to home. See me in the office in 3 days on Sunday. Patient is strongly advised to avoid drinking alcohol. She does not need anxiety medication such as Librium. Recheck labs in the office. Clinically improving. Her vomiting is better. Medications Medications reviewed and reconciled for discharge. Allergy Allergies Coded Allergies Type Severity Reaction Last Updated Verified Penicillins Allergy Intermediate Rash 03/08/21 Yes codeine Adverse Reaction Mild Nausea and Vomiting 03/10/21 Yes erythromycin base Adverse Reaction Mild Nausea and Vomiting 03/10/21 Yes Follow up in 5 days. DISPOSITION: Home Comments Discharge Management - 35 minutes. For other details please refer to discharge instructions Justicifation of Admission Dx: Justifications for Admission: Justification of Admission Dx: Comment: (Intractable vomiting) SAM REAVES MD Mar 10, 2021 10:18
[2021-03-10] MEDS ORDERED: PANT40TA77 PO (10:24)
[2021-03-10] MEDS ORDERED: ONDA4TAB12 PO (10:24)
[2021-03-10] MEDS ORDERED: MAGN400T5 PO (10:24)
--- NOTE | 2021-03-10 10:26 | DISCH ---
DISCHARGE INSTRUCTIONS Condition on Discharge Condition on Discharge: Stable Activity After Discharge Activity Instructions for Disc: Activity as tolerated Diet after Discharge Diet after Discharge: Cardiac (ADA) Checks after Discharge Checks after discharge: Check blood press - daily, Check blood sugar, ac/hs DC Comment: Avoid alcohol. Contacting the after DC Call your doctor for: Concerns you may have Follow-Up Follow up with: Dr.Pratip Reaves on Sunday SAM REAVES MD Mar 10, 2021 10:26
[2021-03-10] MEDS ORDERED: MAGNESIUM SULFATE 4GM 100 ML IV ONE (10:30)
[2021-03-10 11:00] VITALS: BP 134/99
[2021-03-10] MEDS ORDERED: INSULIN LISPRO 300 UNITS/3 ML VIAL. SQ SCH (11:30)
[2021-03-10] MEDS ORDERED: IV RINGERS,LACTATED 1000ML 1,000 ML IV ONE (12:30)
[2021-03-10] MEDS ORDERED: LIDOCAINE 2% PF 5 ML VIAL. ONE (13:44)
[2021-03-10] MEDS ORDERED: PROPOFOL 10 MG/ML (20ML) VIAL. IV ONE (13:44)
--- NOTE | 2021-03-10 14:04 | PDOC4 ---
PROCEDURE Procedure EGD/biopsies Indication: N, V, wt.loss, anorexia Meds: per anesthesia Findings: E--grade A esophagitis and non-obstructing ring at GE junction; not dilated as no symptoms. G--Mild antral erythema; biopsied. D--Normal to second portion. Lona. well. IMP: GERD Mild, asymptomatic Shatzki's Non-specific antral erythema, biopsied. REC: OK to go home. Continue PPI Await path. Needs outpatient colonoscopy for screening. ABA LARA MD Mar 10, 2021 14:04
[2021-03-10 15:30] VITALS: BP 138/89
--- NOTE | 2021-03-10 16:06 | NUR ---
Pt left unit at approx 1600 by wheelchair via private vehicle, accompanied by . Pt's IV removed without complication, VSS. Discharge paperwork discussed with pt, at bedside. Pt verbalizes understanding, additional questions addressed.
--- NOTE | 2021-03-14 18:09 | PATHOLOGY ---
[facility] Accession Number: [id number] . 01 Material submitted: . gastrointestinal site - ANTRUM BIOPSY . 01 Clinical history: . HYPOKALEMIA, HYPOMAGNESEMIA NAUSEA/VOMITING EGD . 02 Diagnosis: Gastric biopsies, antrum: - Chronic gastritis, mild. (M:tatiana; 03/14/2021) [facility] 03/14/2021 1045 Local . 02 Comment: Sections of the gastric biopsy reveal segments of gastric antral/body transition mucosa showing congestion and mild chronic inflammation. A properly controlled immunoperoxidase stain for Helicobacter is negative for Helicobacter organisms. (JPM:tatiana; 03/14/2021) . . Special stain performed: Immunoperoxidase stain for Helicobacter on A1 . 02 Electronically signed: . Kwame Fowler MD, Pathologist NPI- [id number] . 01 Gross description: . Received in formalin labeled "Trisha Plunkett, antrum biopsy" are 2 fragments of sher-brown soft tissue measuring 0.7 x 0.4 x 0.3 cm and 0.6 x 0.3 x 0.2 cm. The specimen is submitted entirely in A1. ([facility]; 03/11/2021) GZA/GZA 03/11/2021 1159 Local . 02 Pathologist provided ICD-10: K29.50 . 02 CPT . 932843, [id number] Specimen Comment: A courtesy copy of this report has been sent to [phone] Specimen Comment: [phone], Specimen Comment: Report sent to , / Performed at: [address], [place], [place] [id number] MD Arben Lee MD Phone: [phone] Performed at: [address] [id number] MD Kwame Fowler MD Phone: [phone]
== END 2021-03-10 16:08 | disposition home or self-care (01) | DRG 392 ==
LOC: ER 16:26 → 6 SOUTH 21:04
PROVIDERS: ADMIT Internal Medicine; ATTEND Internal Medicine
PROC: 0DB68ZX Excision of Stomach, Via Natural or Artificial Opening Endoscopic, Diagnostic (ICD-10-PCS; principal; 2021-03-10 13:30)
DX: K29.00 Acute gastritis without bleeding (principal); E87.6 Hypokalemia; E83.42 Hypomagnesemia; D75.89 Other specified diseases of blood and blood-forming organs; E11.9 Type 2 diabetes mellitus without complications; E53.8 Deficiency of other specified B group vitamins; E78.00 Pure hypercholesterolemia, unspecified; E78.5 Hyperlipidemia, unspecified; F32.9 Major depressive disorder, single episode, unspecified; I10 Essential (primary) hypertension; F10.20 Alcohol dependence, uncomplicated; Y90.9 Presence of alcohol in blood, level not specified; E87.8 Other disorders of electrolyte and fluid balance, not elsewhere classified; R16.0 Hepatomegaly, not elsewhere classified; Z20.822 Contact with and (suspected) exposure to COVID-19; K21.00 Gastro-esophageal reflux disease with esophagitis, without bleeding; K76.0 Fatty (change of) liver, not elsewhere classified; Z82.49 Family history of ischemic heart disease and other diseases of the circulatory system; Z83.3 Family history of diabetes mellitus; Z98.891 History of uterine scar from previous surgery; Z98.51 Tubal ligation status; Z88.5 Allergy status to narcotic agent; Z88.0 Allergy status to penicillin
CPT/HCPCS: 36415; 43239; 74177; 76705; 80048; 80053; 81001; 82962; 83690; 83735; 85025; 87086; 87426; 88305; 88342; 96361; 96365; 96366; 96375; 99285; C9113; J0780; J2405; J2704; J3010; J3475; J3480; J7030; J7120; U0003; U0005; G0378

== ENCOUNTER 2021-06-29 12:29 | Emergency (ER) | payer BC ==
[~2021-06-29] VITALS: Ht 167.6 cm; Wt 89.2 kg
[~2021-06-29 12:29] MED LIST: AMLO-187 PO; ATOR20TA58 PO; DULO30CA2 PO; GLIP5TAB10 PO; MAGN400T5 PO; ONDA4TAB12 PO; PANT40TA77 PO; SITA100T PO
[2021-06-29] MEDS ORDERED: IV NORMAL SALINE 1000ML BAG 1,000 ML IV ONE (13:00)
[2021-06-29 13:21] LABS: BASO # 0.1 x10^3/uL (0.0-0.2); BASO % 1 % (0-3); EOS # 0.1 x10^3/uL (0.0-0.7); EOS % 1 % (0-3); HEMATOCRIT 33.9 % (36.0-47.0); LYMPH # 1.6 x10^3/uL (1.0-4.8); LYMPH % 18 % (24-48); MEAN CORPUSCULAR HEMOGLOBIN 37 pg (25-35); MEAN CORPUSCULAR HGB CONC 35 g/dL (31-37); MEAN CORPUSCULAR VOLUME 104 fL (79-100); MONO # 0.7 x10^3/uL (0.0-1.1); MONO % 8 % (0-9); NEUT # 6.7 x10^3/uL (1.8-7.7); NEUT % 73 % (31-73); PLATELET COUNT 179 x10^3/uL (140-400); RED BLOOD COUNT 3.26 x10^6/uL (3.50-5.40); RED CELL DISTRIBUTION WIDTH 13.1 % (11.5-14.5); WHITE BLOOD COUNT 9.2 x10^3/uL (4.0-11.0)
[2021-06-29 13:27] LABS: CALCIUM 9.3 mg/dL (8.5-10.1); CREATININE 0.8 mg/dL (0.6-1.0); GFR 90.4; POTASSIUM 4.5 mmol/L (3.5-5.1)
[2021-06-29 13:33] LABS: ALBUMIN 3.6 g/dL (3.4-5.0); ALBUMIN/GLOBULIN RATIO 0.7 (1.0-1.7); MAGNESIUM 1.2 mg/dL (1.8-2.4); TOTAL BILIRUBIN 0.7 mg/dL (0.2-1.0); TOTAL PROTEIN 8.7 g/dL (6.4-8.2)
[2021-06-29] MEDS ORDERED: MAGNESIUM SULFATE 2GM 50 ML IV ONE (13:45)
[2021-06-29] MEDS ORDERED: INSULIN REGULAR 100 UNIT/ML 3ML VIAL. IV ONE (14:00)
--- NOTE | 2021-06-29 15:14 | PHYS DOC ---
Past Medical History Past Medical History: Diabetes-Type II, High Cholesterol, Hypertension Past Surgical History: , Tubal ligation Smoking Status: Never Smoker Alcohol Use: Heavy Additional Information: STOPPED DRINKING LAST SUNDAY Drug Use: None General Adult EDM: Chief Complaint: HYPERGLYCEMIA HPI: HPI: Patient is a 56 year old female with a history of diabetic, on insulin, was sent here from her family physician clinic due to elevated blood sugar while she was in the clinic at 483. Patient denies any abdominal pain, no nausea vomiting, no cough, no fever. Patient says she was recently discharged from [facility] due to depression anxiety. Patient denies suicidal ideation, denies most ideation. Patient was vaccinated for COVID-19 already. Review of Systems: Review of Systems: Constitutional: Denies fever or chills. [] Eyes: Denies change in visual acuity. [] HENT: Denies nasal congestion or sore throat. [] Respiratory: Denies cough or shortness of breath. [] Cardiovascular: Denies chest pain or edema. [] GI: Denies abdominal pain, nausea, vomiting, bloody stools or diarrhea. [] : Denies dysuria. [] Musculoskeletal: Denies back pain or joint pain. [] Integument: Denies rash. [] Neurologic: Denies headache, focal weakness or sensory changes. [] Endocrine: Denies polyuria or polydipsia. [] Lymphatic: Denies swollen glands. [] Psychiatric: Denies depression or anxiety. [] Heart Score: C/O Chest Pain: N/A Risk Factors: Risk Factors: DM, Current or recent (<one month) smoker, HTN, HLP, family history of CAD, obesity. Risk Scores: Score 0 - 3: 2.5% MACE over next 6 weeks - Discharge Home Score 4 - 6: 20.3% MACE over next 6 weeks - Admit for Clinical Observation Score 7 - 10: 72.7% MACE over next 6 weeks - Early Invasive Strategies Current Medications: Current Medications Medications (Trade) Dose Ordered Sig/Raheem Start Time Stop Time Status Last Admin Dose Admin Insulin Human Regular (HumuLIN R VIAL) 9 unit 1X ONCE 06/29/21 14:00 06/29/21 14:01 DC 06/29/21 14:24 9 UNIT Magnesium Sulfate 50 ml @ 25 mls/hr 1X ONCE 06/29/21 13:45 06/29/21 15:44 06/29/21 14:23 25 MLS/HR Sodium Chloride 1,000 ml @ 1,000 mls/hr 1X ONCE 06/29/21 13:00 06/29/21 13:59 DC 06/29/21 13:10 1,000 MLS/HR Allergies: Allergies: Allergies Coded Allergies Type Severity Reaction Last Updated Verified Penicillins Allergy Intermediate Rash 03/10/21 Yes codeine Adverse Reaction Mild Nausea and Vomiting 03/10/21 Yes erythromycin base Adverse Reaction Mild Nausea and Vomiting 03/10/21 Yes Physical Exam: PE: Constitutional: Well developed, well nourished, no acute distress, non-toxic appearance. [] HENT: Normocephalic, atraumatic, bilateral external ears normal, oropharynx moist, no oral exudates, nose normal. [] Eyes: PERRLA, EOMI, conjunctiva normal, no discharge. [] Neck: Normal range of motion, no tenderness, supple, no stridor. [] Cardiovascular:Heart rate regular rhythm, no murmur [] Lungs & Thorax: Bilateral breath sounds clear to auscultation [] Abdomen: Bowel sounds normal, soft, no tenderness, no masses, no pulsatile masses. [] Skin: Warm, dry, no erythema, no rash. [] Back: No tenderness, no CVA tenderness. [] Extremities: No tenderness, no cyanosis, no clubbing, ROM intact, no edema. [] Neurologic: Alert and oriented X 3, normal motor function, normal sensory function, no focal deficits noted. [] Psychologic: Affect normal, judgement normal, mood normal. [] Current Patient Data: Labs: Laboratory Tests Test 06/29/21 12:55 06/29/21 14:24 White Blood Count 9.2 x10^3/uL (4.0-11.0) Red Blood Count 3.26 x10^6/uL (3.50-5.40) L Hemoglobin 12.0 g/dL (12.0-15.5) Hematocrit 33.9 % (36.0-47.0) L Mean Corpuscular Volume 104 fL (79-100) H Mean Corpuscular Hemoglobin 37 pg (25-35) H Mean Corpuscular Hemoglobin Concent 35 g/dL (31-37) Red Cell Distribution Width 13.1 % (11.5-14.5) Platelet Count 179 x10^3/uL (140-400) Neutrophils (%) (Auto) 73 % (31-73) Lymphocytes (%) (Auto) 18 % (24-48) L Monocytes (%) (Auto) 8 % (0-9) Eosinophils (%) (Auto) 1 % (0-3) Basophils (%) (Auto) 1 % (0-3) Neutrophils # (Auto) 6.7 x10^3/uL (1.8-7.7) Lymphocytes # (Auto) 1.6 x10^3/uL (1.0-4.8) Monocytes # (Auto) 0.7 x10^3/uL (0.0-1.1) Eosinophils # (Auto) 0.1 x10^3/uL (0.0-0.7) Basophils # (Auto) 0.1 x10^3/uL (0.0-0.2) Sodium Level 134 mmol/L (136-145) L Potassium Level 4.5 mmol/L (3.5-5.1) Chloride Level 95 mmol/L (98-107) L Carbon Dioxide Level 29 mmol/L (21-32) Anion Gap 10 (6-14) Blood Urea Nitrogen 6 mg/dL (7-20) L Creatinine 0.8 mg/dL (0.6-1.0) Estimated GFR (Cockcroft-Gault) 90.4 BUN/Creatinine Ratio 8 (6-20) Glucose Level 413 mg/dL (70-99) H Calcium Level 9.3 mg/dL (8.5-10.1) Magnesium Level 1.2 mg/dL (1.8-2.4) L Total Bilirubin 0.7 mg/dL (0.2-1.0) Aspartate Amino Transferase (AST) 62 U/L (15-37) H Alanine Aminotransferase (ALT) 40 U/L (14-59) Alkaline Phosphatase 111 U/L (46-116) Total Protein 8.7 g/dL (6.4-8.2) H Albumin 3.6 g/dL (3.4-5.0) Albumin/Globulin Ratio 0.7 (1.0-1.7) L Acetone Level Neg (NEG) Glucose (Fingerstick) 311 mg/dL (70-99) H Laboratory Tests 06/29/21 12:55 Laboratory Tests 06/29/21 12:55 Vital Signs: Vital Signs Date Time Temp Pulse Resp B/P (MAP) Pulse Ox O2 Delivery O2 Flow Rate FiO2 06/29/21 13:06 99.4 108 22 154/80 (105) 98 Room Air 99.4 EKG: EKG: [] Radiology/Procedures: Radiology/Procedures: [] Course & Med Decision Making: Course & Med Decision Making Pertinent Labs and Imaging studies reviewed. (See chart for details) Patient is a 56-year-old female who present to ER due to elevated blood sugar, patient is not in DKA. Patient was given IV fluid in ER, her blood sugar improved to 311. Discussed with her family physician Dr. Reaves who wanted to admit patient to hospital. Informed patient of the plan of care, patient was agreeable to the plan of care. Dragon Disclaimer: Dragon Disclaimer: This electronic medical record was generated, in whole or in part, using a voice recognition dictation system. Departure Departure Impression: Primary Impression: Hyperglycemia Additional Impression: Hypomagnesemia Disposition: ADMITTED INPATIENT Admitting Physician: Sam Reaves Referrals: SAM REAVES MD (PCP) WALI SCHULTZ DO Jun 29, 2021 15:14
[2021-06-29 15:53] VITALS: BP 158/80
== END 2021-06-29 16:16 | disposition left against medical advice (07) ==
LOC: ER 12:29
DX: E11.65 Type 2 diabetes mellitus with hyperglycemia (principal); E83.42 Hypomagnesemia; E78.00 Pure hypercholesterolemia, unspecified; I10 Essential (primary) hypertension; F10.20 Alcohol dependence, uncomplicated; Z98.890 Other specified postprocedural states; Z98.51 Tubal ligation status; Z88.0 Allergy status to penicillin; Z88.5 Allergy status to narcotic agent; Z88.1 Allergy status to other antibiotic agents; Y90.0 Blood alcohol level of less than 20 mg/100 ml
CPT/HCPCS: 36415; 80053; 82010; 82962; 83735; 85025; 96361; 96365; 96366; 96375; 99284; J1815; J3475; J7030

== ENCOUNTER 2021-08-01 08:32 | Observation (INO) | payer BC ==
[~2021-08-01] VITALS: Ht 167.6 cm; Wt 86.1 kg
[~2021-08-01 08:32] MED LIST changes: +MAGN400T48 PO; -MAGN400T5 PO
[2021-08-01] MEDS ORDERED: ONDANSETRON PF 4 MG/2 ML VIAL. IVP ONE ×2 (09:00→11:00)
[2021-08-01] MEDS ORDERED: MORPHINE SULFATE 4 MG/ML INJ. IVP ONE (09:00)
[2021-08-01] MEDS ORDERED: IV NORMAL SALINE 1000ML BAG 1,000 ML IV ONE ×2 (09:00→12:30)
--- NOTE | 2021-08-01 09:09 | PHYS DOC ---
Past Medical History Past Medical History: Diabetes-Type II, High Cholesterol, Hypertension Past Surgical History: , Tubal ligation Smoking Status: Never Smoker Alcohol Use: Heavy Drug Use: None General Adult EDM: Chief Complaint: NAUSEA/VOMITING/DIARRHEA HPI: HPI: Patient is a 56 year old female with history of diabetes who presents with nausea, vomiting, abdominal pain. Started this morning abruptly after 4 AM. Upper abdominal pain. Cramping in nature. Does not radiate. No dysuria, urgency, frequency. States that she was feeling similarly approximately 3 weeks ago when she was admitted with high blood glucose. She did take her insulin this morning, unsure of the exact dose. Has been vomiting frequently. Yellow/green vomitus. Does complain of chills. Review of Systems: Review of Systems: Constitutional: Denies fever or chills. [] Eyes: Denies change in visual acuity. [] HENT: Denies nasal congestion or sore throat. [] Respiratory: Denies cough or shortness of breath. [] Cardiovascular: Denies chest pain or edema. [] GI: Reports nausea, vomiting, abdominal pain. [] : Denies dysuria. [] Musculoskeletal: Denies back pain or joint pain. [] Integument: Denies rash. [] Neurologic: Denies headache, focal weakness or sensory changes. [] Endocrine: Denies polyuria or polydipsia. [] Lymphatic: Denies swollen glands. [] Psychiatric: Denies depression or anxiety. [] Heart Score: C/O Chest Pain: No Risk Factors: Risk Factors: DM, Current or recent (<one month) smoker, HTN, HLP, family history of CAD, obesity. Risk Scores: Score 0 - 3: 2.5% MACE over next 6 weeks - Discharge Home Score 4 - 6: 20.3% MACE over next 6 weeks - Admit for Clinical Observation Score 7 - 10: 72.7% MACE over next 6 weeks - Early Invasive Strategies Current Medications: Current Medications Medications (Trade) Dose Ordered Sig/Raheem Start Time Stop Time Status Last Admin Dose Admin Morphine Sulfate (Morphine Sulfate) 4 mg 1X ONCE 08/01/21 09:00 08/01/21 09:01 DC Ondansetron HCl (Zofran) 4 mg 1X ONCE 08/01/21 09:00 08/01/21 09:01 DC Sodium Chloride 1,000 ml @ 1,000 mls/hr 1X ONCE 08/01/21 09:00 08/01/21 09:59 Allergies: Allergies: Allergies Coded Allergies Type Severity Reaction Last Updated Verified Penicillins Allergy Intermediate Rash 03/10/21 Yes codeine Adverse Reaction Mild Nausea and Vomiting 03/10/21 Yes erythromycin base Adverse Reaction Mild Nausea and Vomiting 03/10/21 Yes Physical Exam: PE: Constitutional: Frequently retching and vomiting. Green liquid material. Diap horetic. Ill-appearing. [] HENT: Normocephalic, atraumatic, Eyes: conjunctiva normal, no discharge. [] Neck: Normal range of motion, no tenderness, supple, no stridor. [] Cardiovascular:Heart rate regular rhythm, no murmur [] Lungs & Thorax: Bilateral breath sounds clear to auscultation [] Abdomen: Upper abdominal tenderness to palpation. [] Skin: Warm, dry, no erythema, no rash. [] Back: No tenderness, no CVA tenderness. [] Extremities: No tenderness, no cyanosis, no clubbing, ROM intact, no edema. [] Neurologic: Alert and oriented X 3, normal motor function, normal sensory function, no focal deficits noted. [] Psychologic: Affect normal, judgement normal, mood normal. [] Current Patient Data: Labs: Laboratory Tests Test 08/01/21 08:59 Glucose (Fingerstick) 316 mg/dL (70-99) H EKG: EKG: [] Radiology/Procedures: Radiology/Procedures: [] Impression: [facility] [address] [place], [place] [id number] IMAGING REPORT Signed PATIENT: KIMBERLY OLIVER AACCOUNT: [id number] : 1965 LOCATION: ER AGE: 56 SEX: F EXAM STATUS: REG ER ORD. PHYSICIAN: VIBHA TRUONG MD REASON: upper abd pain, vomiting green colored liquid PROCEDURE: CT ABD PELV W/ IV CONTRST ONLY EXAM: Abdomen and pelvis CT with intravenous contrast. HISTORY: Pain. Emesis. TECHNIQUE: Computed tomographic images of the abdomen and pelvis were obtained following the administration of intravenous contrast. Multiplanar reformatting was performed. *One or more of the following individualized dose reduction techniques were utilized for this examination: 1. Automated exposure control. 2. Adjustment of the mA and/or kV according to patient size. 3. Use of iterative reconstruction technique. COMPARISON: 03/08/2021. FINDINGS: Evaluation of the lower thorax demonstrates a calcified granuloma within the right middle lobe. There is no infiltrate or pleural effusion. There is hepatomegaly and hepatic steatosis. No focal hepatic lesion is seen. The gal lbladder, pancreas and adrenal glands are unremarkable. There is a splenule adjacent to an otherwise unremarkable spleen. The kidneys are unremarkable. There are few colonic diverticula. There is no evidence of diverticulitis. There is no appendicitis. There is no bowel obstruction or abnormal bowel wall thickening. The bladder, uterus and ovaries are unremarkable. The aorta is no rmal in caliber. There are stable mesenteric and retroperitoneal lymph nodes. There is degenerative change involving the spine. There is grade 1 anterolisthesis of L4 on L5. IMPRESSION: 1. No acute abdominal or pelvic finding. 2. Hepatomegaly and hepatic steatosis. Electronically signed by: Anne Rosas MD (08/01/2021 11:12 AM) [facility] DICTATED and SIGNED BY: ANNE ROSAS MD DATE: 08/01/21 [id number] 0 Course & Med Decision Making: Course & Med Decision Making Pertinent Labs and Imaging studies reviewed. (See chart for details) Patient 56-year-old female who is diabetic presents with nausea, vomiting, and abdominal pain that was abrupt onset. On arrival is ill-appearing, diaphoretic, and actively vomiting. We will treat pain and nausea, give IV fluids, check labs, UA, abdominal CT. Byrrh-ed-hisl glucose 318 on arrival. 0909 No DKA A few wbc and bacteria on UA, but without urinary symptoms. WIll not treat for UTI. CT shows no evidence of acute pathology. Unclear etiology of nausea Will continue to treat n/v and re-evaluate to determine most appropriate disposition. 1140 Nausea has been intractable through several rounds of IV zofran, compazine, benadryl. Will be admitted to Dr. Chavez. Dr. Chavez has requested GI consultation, for which I placed an order. [id number] Margie Disclaimer: Margie Disclaimer: This electronic medical record was generated, in whole or in part, using a voice recognition dictation system. Departure Departure Impression: Primary Impression: Intractable nausea and vomiting Additional Impression: Hyperglycemia Disposition: ADMITTED INPATIENT Admitting Physician: Sam Chavez Condition: STABLE Referrals: SAM CHAVEZ MD (PCP) VIBHA TRUONG MD Aug 01, 2021 09:09
[2021-08-01 10:25] LABS: BASO # 0.1 x10^3/uL (0.0-0.2); BASO % 1 % (0-3); EOS % 0 % (0-3); HEMATOCRIT 36.9 % (36.0-47.0); HEMOGLOBIN 12.7 g/dL (12.0-15.5); LYMPH # 0.5 x10^3/uL (1.0-4.8); LYMPH % 5 % (24-48); MEAN CORPUSCULAR HEMOGLOBIN 36 pg (25-35); MEAN CORPUSCULAR HGB CONC 34 g/dL (31-37); MEAN CORPUSCULAR VOLUME 104 fL (79-100); MONO # 0.3 x10^3/uL (0.0-1.1); MONO % 3 % (0-9); NEUT # 8.8 x10^3/uL (1.8-7.7); NEUT % 92 % (31-73); PLATELET COUNT 223 x10^3/uL (140-400); RED BLOOD COUNT 3.56 x10^6/uL (3.50-5.40); RED CELL DISTRIBUTION WIDTH 13.4 % (11.5-14.5); WHITE BLOOD COUNT 9.6 x10^3/uL (4.0-11.0)
[2021-08-01 10:36] LABS: CALCIUM 8.9 mg/dL (8.5-10.1); GFR 69.9; POTASSIUM 3.7 mmol/L (3.5-5.1)
[2021-08-01 10:39] LABS: BILIRUBIN,URINE NEGATIVE (NEG); COLOR,URINE YELLOW; NITRITE,URINE NEGATIVE (NEG); PH,URINE 7.5 (<5.0-8.0); PROTEIN,URINE 100 mg/dL (NEG-TRACE)
[2021-08-01 10:40] LABS: CLARITY,URINE CLEAR
[2021-08-01 10:41] LABS: BACTERIA,URINE FEW /HPF (0-FEW); WBC,URINE OCC /HPF (0-4)
[2021-08-01 10:42] LABS: ALBUMIN 4.3 g/dL (3.4-5.0); ALBUMIN/GLOBULIN RATIO 0.9 (1.0-1.7); TOTAL BILIRUBIN 0.6 mg/dL (0.2-1.0); TOTAL PROTEIN 9.1 g/dL (6.4-8.2)
[2021-08-01] MEDS ORDERED: CONTRAST GIVEN. MC PRN (11:00)
[2021-08-01] MEDS ORDERED: IOHEXOL 300 MG/ML 100ML VIAL. IV ONE (11:00)
--- NOTE | 2021-08-01 11:14 | RAD ---
EXAM: Abdomen and pelvis CT with intravenous contrast. HISTORY: Pain. Emesis. TECHNIQUE: Computed tomographic images of the abdomen and pelvis were obtained following the administ ration of intravenous contrast. Multiplanar reformatting was performed. *One or more of the following individualized dose reduction techniques were utilized for this examina tion: 1. Automated exposure control. 2. Adjustment of the mA and/or kV according to patient size. 3. Use of iterative reconstruction technique. COMPARISON: 03/08/2021. FINDINGS: Evaluation of the lower thorax demonstrates a calcified granuloma within the right middle l obe. There is no infiltrate or pleural effusion. There is hepatomegaly and hepatic steatosis. No foca l hepatic lesion is seen. The gallbladder, pancreas and adrenal glands are unremarkable. There is a s plenule adjacent to an otherwise unremarkable spleen. The kidneys are unremarkable. There are few colonic diverticula. There is no evidence of diverticulitis. There is no appendicitis. There is no bowel obstruction or abnormal bowel wall thickening. The bladder, uterus and ovaries are unremarkable. The aorta is normal in caliber. There are stable mesenteric and retroperitoneal lymph n odes. There is degenerative change involving the spine. There is grade 1 anterolisthesis of L4 on L5. IMPRESSION: 1. No acute abdominal or pelvic finding. 2. Hepatomegaly and hepatic steatosis. Electronically signed by: Anne Montano MD (08/01/2021 11:12 AM) [facility]
[2021-08-01] MEDS ORDERED: PROCHLORPERAZINE 10 MG/2 ML VIAL. IV ONE (12:30)
[2021-08-01] MEDS ORDERED: diphenhydrAMINE 50 MG/ML VIAL IVP ONE (12:30)
[2021-08-01] MEDS ORDERED: LIDO:MAALOX 1:1 20 ML SINGLE DOSE. PO PRN (13:15)
--- NOTE | 2021-08-01 15:33 | PDOC2 ---
GI CONSULT Date of Service: DATE: 08/01/21 TIME: 15:18 Reason For Consult: intractable vomiting HPI: HPI: 56 y/o female who we saw in 02/2021 for vomiting and weight loss. EGD at that time showed GERD (grade A esophagitis), mild Schatzki's ring (not dilated as asymptomatic), and non-specific antral erythema. Antral biopsy showed mild chronic gastritis (negative for H. pylori). To ER today w/ n/v that began at 5:00 a.m. Denies precipitating events. Didn't feel very well yesterday so didn't eat. Describes bilious emesis and now has diffuse abdominal discomfort attributed to retching. Takes a pill PRN for GERD (does not recognize names of PPIs - pantoprazole on summary list). Denies dysphagia, hematemesis, diarrhea, constipation, hematochezia, and melena. Probably has lost an additional 4-5 pounds. Has had a couple episodes of n/v since we have seen, but feels well and eats normally in between these. No previous colonoscopy though previously recommended outpt follow-up for screening colonoscopy. Diverticulosis and hepatic steatosis/hepatomegaly on imaging. No GB, pancreas, or PUD history. GB was unremarkable on US in 02/2021. No NSAIDs. H/o DM on insulin (and no longer metformin). Says glucose is usually around 150-160 at home but can be as low as 43-48 and this morning was 316. She does not notice correlation between hyperglycemia and n/v. PMH: PMH: HTN, HLD, DM, depression , tubal ligation, CTR FH: Family History: No pertinent hx Social History: Smoke: No ALCOHOL: other (previously a couple glasses of wine daily, now has a couple gl asses on the weekend) Drugs: None ROS: GEN: Denies fevers, chills, sweats HEENT: Denies blurred vision, sore throat CV: Denies chest pain RESP: Denies shortness of air, cough GI: Per HPI : Denies hematuria, dysuria ENDO: +weight loss NEURO: Denies confusion, dizziness MSK: Denies weakness, joint pain/swelling SKIN: Denies jaundice, pruritus Vitals: Vitals: Vital Signs Date Time Temp Pulse Resp B/P (MAP) Pulse Ox O2 Delivery O2 Flow Rate FiO2 08/01/21 13:29 125 24 170/80 (110) 97 Room Air 08/01/21 08:44 98.7 98.7 Labs: Labs: Laboratory Tests Test 08/01/21 08:59 08/01/21 09:57 08/01/21 10:05 08/01/21 10:23 Glucose (Fingerstick) 316 mg/dL (70-99) White Blood Count 9.6 x10^3/uL (4.0-11.0) Red Blood Count 3.56 x10^6/uL (3.50-5.40) Hemoglobin 12.7 g/dL (12.0-15.5) Hematocrit 36.9 % (36.0-47.0) Mean Corpuscular Volume 104 fL (79-100) Mean Corpuscular Hemoglobin 36 pg (25-35) Mean Corpuscular Hemoglobin Concent 34 g/dL (31-37) Red Cell Distribution Width 13.4 % (11.5-14.5) Platelet Count 223 x10^3/uL (140-400) Neutrophils (%) (Auto) 92 % (31-73) Lymphocytes (%) (Auto) 5 % (24-48) Monocytes (%) (Auto) 3 % (0-9) Eosinophils (%) (Auto) 0 % (0-3) Basophils (%) (Auto) 1 % (0-3) Neutrophils # (Auto) 8.8 x10^3/uL (1.8-7.7) Lymphocytes # (Auto) 0.5 x10^3/uL (1.0-4.8) Monocytes # (Auto) 0.3 x10^3/uL (0.0-1.1) Eosinophils # (Auto) 0.0 x10^3/uL (0.0-0.7) Basophils # (Auto) 0.1 x10^3/uL (0.0-0.2) Sodium Level 139 mmol/L (136-145) Potassium Level 3.7 mmol/L (3.5-5.1) Chloride Level 94 mmol/L (98-107) Carbon Dioxide Level 32 mmol/L (21-32) Anion Gap 13 (6-14) Blood Urea Nitrogen 8 mg/dL (7-20) Creatinine 1.0 mg/dL (0.6-1.0) Estimated GFR (Cockcroft-Gault) 69.9 BUN/Creatinine Ratio 8 (6-20) Glucose Level 291 mg/dL (70-99) Calcium Level 8.9 mg/dL (8.5-10.1) Total Bilirubin 0.6 mg/dL (0.2-1.0) Aspartate Amino Transf (AST/SGOT) 43 U/L (15-37) Alanine Aminotransferase (ALT/SGPT) 47 U/L (14-59) Alkaline Phosphatase 118 U/L (46-116) Troponin I Quantitative < 0.017 ng/mL (0.000-0.055) Total Protein 9.1 g/dL (6.4-8.2) Albumin 4.3 g/dL (3.4-5.0) Albumin/Globulin Ratio 0.9 (1.0-1.7) Lipase 333 U/L (73-393) Urine Collection Type Unknown Urine Color Yellow Urine Clarity Clear Urine pH 7.5 (<5.0-8.0) Urine Specific [place] 1.020 (1.000-1.030) Urine Protein 100 mg/dL (NEG-TRACE) Urine Glucose (UA) >=1000 mg/dL (NEG) Urine Ketones (Stick) 15 mg/dL (NEG) Urine Blood Trace (NEG) Urine Nitrite Negative (NEG) Urine Bilirubin Negative (NEG) Urine Urobilinogen Dipstick 1.0 mg/dL (0.2 mg/dL) Urine Leukocyte Esterase Negative (NEG) Urine RBC 3-5 /HPF (0-2) Urine WBC Occ /HPF (0-4) Urine Squamous Epithelial Cells Mod /LPF Urine Bacteria Few /HPF (0-FEW) Bedside Urine HCG, Qualitative Hcg negative (Negative) Allergies: Coded Allergies: Penicillins (Verified Allergy, Intermediate, Rash, 03/10/21) codeine (Verified Adverse Reaction, Mild, Nausea and Vomiting, 03/10/21) erythromycin base (Verified Adverse Reaction, Mild, Nausea and Vomiting, 03/10/21) Medications: Current Medications Medications (Trade) Dose Ordered Sig/Raheem Route PRN Reason Start Time Stop Time Status Last Admin Dose Admin Ondansetron HCl (Zofran) 4 mg 1X ONCE IVP 08/01/21 09:00 08/01/21 09:01 DC 08/01/21 10:08 Sodium Chloride 1,000 ml @ 1,000 mls/hr 1X ONCE IV 08/01/21 09:00 08/01/21 09:59 DC 08/01/21 10:09 Morphine Sulfate (Morphine Sulfate) 4 mg 1X ONCE IVP 08/01/21 09:00 08/01/21 09:01 DC 08/01/21 10:08 Iohexol (Omnipaque 300 Mg/ml) 75 ml 1X ONCE IV 08/01/21 11:00 08/01/21 11:01 DC 08/01/21 11:01 Ondansetron HCl (Zofran) 4 mg 1X ONCE IVP 08/01/21 11:00 08/01/21 11:01 DC 08/01/21 11:04 Prochlorperazine Edisylate (Compazine) 10 mg 1X ONCE IV 08/01/21 12:30 08/01/21 12:31 DC 08/01/21 13:50 Diphenhydramine HCl (Benadryl) 25 mg 1X ONCE IVP 08/01/21 12:30 08/01/21 12:31 DC 08/01/21 13:50 Sodium Chloride 1,000 ml @ 1,000 mls/hr 1X ONCE IV 08/01/21 12:30 08/01/21 13:29 DC 08/01/21 13:49 Multi-Ingredient Mouthwash/Gargle (Gi Cocktail) 20 ml PRN QID PRN PO CHEST PAIN 08/01/21 13:15 08/01/21 13:50 Imaging: Imaging: CT A/P FINDINGS: Evaluation of the lower thorax demonstrates a calcified granuloma within the right middle lobe. There is no infiltrate or pleural effusion. There is hepatomegaly and hepatic steatosis. No focal hepatic lesion is seen. The gallbladder, pancreas and adrenal glands are unremarkable. There is a splenule adjacent to an otherwise unremarkable spleen. The kidneys are unremarkable. There are few colonic diverticula. There is no evidence of diverticulitis. There is no appendicitis. There is no bowel obstruction or abnormal bowel wall thickening. The bladder, uterus and ovaries are unremarkable. The aorta is normal in caliber. There are stable mesenteric and retroperitoneal lymph nodes. There is degenerative change involving the spine. There is grade 1 anterolisthesis of L4 on L5. IMPRESSION: 1. No acute abdominal or pelvic finding. 2. Hepatomegaly and hepatic steatosis. PE: GEN: NAD HEENT: Atraumatic, PERRL LUNGS: CTAB anteriorly HEART: tachycardic ABD: quiet BS, S/ND, not particularly tender EXTREMITY: No edema SKIN: No rashes, no jaundice NEURO/PSYCH: A & O 3 A/P: A/P: Recurrent vomiting Macrocytosis (noted in past - alcohol history), hyperglycemia/IDDM GERD - mild on recent EGD CRC screen - none Diverticulosis Hepatic steatosis HTN -- IV PPI, anti-emetics. Consider GES when able to tolerate some PO. Outpt screening colonoscopy as previously recommended. COVID pending. Hyperglycemia/DM per primary. ?really drinking less JENS SNYDER Aug 01, 2021 15:33
[2021-08-01] MEDS: PANTOPRAZOLE IV PUSH 40 MG VIAL. IVP SCH (16:40)
[2021-08-01 16:49] LABS: AMPHETAMINE/METHAMPHETAMINE NEG (NEG); BARBITURATES NEG (NEG); BENZODIAZEPINES NEG (NEG); CANNABINOIDS NEG (NEG); COCAINE NEG (NEG); METHADONE NEG (NEG); OPIATES NEG (NEG); PHENCYCLIDINE NEG (NEG)
[2021-08-01 19:00] VITALS: BP 138/71
--- NOTE | 2021-08-01 19:00 | NUR ---
The patient, KIMBERLY OLIVER, 56 y/o, F admitted by SAM REAVES MD, was given written information regarding hospital policies, unit procedures and contact persons. Valuables were checked and kept in room per pt wishes. Denies needs currently. Will continue to monitor.
[2021-08-01] MEDS ORDERED: ACETAMINOPHEN 325 MG TABLET. PO PRN (19:15)
[2021-08-01] MEDS ORDERED: ONDANSETRON PF 4 MG/2 ML VIAL. IVP PRN (19:15)
[2021-08-01] MEDS ORDERED: hydrALAZINE 20 MG/ML VIAL. IVP PRN (19:15)
--- NOTE | 2021-08-01 19:18 | PDOC ---
Provider Note Date of Service: DATE: 08/01/21 TIME: 19:18 Provider Note H&P dictated #[id number] Justifications for Admission Other Justification SAM REAVES MD Aug 01, 2021 19:18
--- NOTE | 2021-08-01 20:21 | HP ---
ADMIT DATE: 08/01/2021 HISTORY OF PRESENT ILLNESS: This is a 56-year-old female who has a history of diabetes mellitus type 2 that is not controlled, hypertension, alcoholism, started having severe nausea and vomiting since 5:00 this morning. Nausea and vomiting has been intractable, so she came to the emergency room where she continued to have a lot of nausea and vomiting. She was given IV fluids, IV Zofran, IV Compazine, IV Protonix and multiple medications and finally it was decided to go ahead and admit her for further evaluation and management. The patient denies any fever, cold, cough, congestion. She has occasional diarrhea. She denies any bleeding, although the vomitus was dark. She denies any cold, cough, congestion, chest pains. The last time she had alcohol was on Sunday and about three to four drinks of vodka. She drinks once a week only now and she is trying to quit. She denies eating anything unusual. Because of her intractable nausea and vomiting, the patient was admitted for further evaluation and management. SYSTEMS REVIEW: As noted in the history of present illness. Other systems reviewed and are negative. PAST MEDICAL HISTORY: The patient was last admitted here in 02/2021 for acute intractable vomiting, acute gastritis, severe hypomagnesemia, acute hypokalemia, hypertension, alcoholism, vitamin B12 deficiency, depression, hyperlipidemia, and diabetes mellitus type 2. PAST SURGICAL HISTORY: The patient had . ALLERGIES: THE PATIENT IS ALLERGIC TO CODEINE, ERYTHROMYCIN BASE AND PENICILLIN. FAMILY HISTORY: Brother has coronary artery disease, premature. Father had hypertension and diabetes mellitus type 2. Mother has hypertension and diabetes mellitus also. SOCIAL HISTORY: No history of smoking. The patient has a history of alcoholism. No history of drug abuse. MEDICATIONS: Reviewed. The patient is not taking any Humalog or NovoLog insulin, she is taking Basaglar 45 units subcutaneous twice daily. PHYSICAL EXAMINATION: GENERAL: The patient is a middle-aged female who is alert, oriented and not in acute distress. She appears to be chronically ill. VITAL SIGNS: Temperature 98.7, pulse 114 per minute, respirations 21 per minute, blood pressure 169/98 mmHg. EYES: Pupils reacting to light. Conjunctivae pale. Sclerae muddy. HENT: Unremarkable. NECK: Supple. JVP normal. No thyromegaly. Trachea midline. LUNGS: Decreased breath sounds at bases. CARDIOVASCULAR: S1, S2 regular. ABDOMEN: Soft, nontender, no guarding, no rigidity. Bowel sounds present. EXTREMITIES: No edema, no cyanosis, no calf tenderness. CENTRAL NERVOUS SYSTEM: Alert and oriented. Generalized weakness. LABORATORY FINDINGS: WBC count 9.6, hemoglobin 12.7, MCV 104, platelet count 223,000. Sodium 139, potassium 3.7, BUN 8, creatinine 1, glucose 316 and 291, AST 43, ALT 47, alkaline phosphatase 118, total protein 9.1, albumin 4.3, lipase 333. Vitamin B12 level 939. Troponin less than 0.017. SARS-CoV-2 antigen test is negative. Urinalysis, occasional WBCs, few bacteria, otherwise negative. Urine test is negative. Urine drug screen is negative. CT scan of abdomen and pelvis did not show any acute abdominal or pelvic findings. Has hepatomegaly and hepatic steatosis. IMPRESSION: 1. Acute intractable vomiting. 2. Acute gastritis. 3. Electrolyte imbalance. 4. Hypertension. 5. Diabetes mellitus type 2, not controlled. 6. Vitamin B12 deficiency. 7. Depression. 8. Alcoholism. 9. Hyperlipidemia. PLAN: Continue IV fluids. Continue IV Protonix. Hold most of the oral medications for now. IV hydralazine p.r.n. for hypertension. Consult Dr. Kimble for GI evaluation and management. I will start her on sliding scale insulin and lower dose of Basaglar as she is not able to eat. Recheck labs in a.m. The patient is strongly advised to avoid alcohol. For details, please refer to the orders. LORENZO DR: Emilie TID: [id number]
[2021-08-01] MEDS: INSULIN GLARGINE SYRINGE. SQ SCH (20:39)
[2021-08-01] MEDS ORDERED: CYAN50005 SL (21:39)
[2021-08-01] MEDS ORDERED: TIZA4TAB2 PO (21:39)
[2021-08-01] MEDS ORDERED: ACYC-12 PO (21:39)
[2021-08-01] MEDS ORDERED: INSU100V6 SQ (21:39)
[2021-08-01] MEDS ORDERED: TURM500C4 PO (21:39)
[2021-08-01] MEDS ORDERED: INSU100I32 SQ (21:39)
[2021-08-01] MEDS ORDERED: HYDR12.58 PO (21:39)
[2021-08-01] MEDS ORDERED: METO-247 PO (21:39)
[2021-08-01] MEDS ORDERED: THIA100T57 PO (21:39)
[2021-08-01] MEDS ORDERED: POTA10TA12 PO (21:39)
[2021-08-01] MEDS ORDERED: GABA600T7 PO (21:39)
[2021-08-01] MEDS ORDERED: BIOT1CAP3 PO (21:39)
[2021-08-01] MEDS ORDERED: DICL20GE TP (21:39)
[2021-08-01 23:00] VITALS: BP 146/84
[2021-08-02 02:08] LABS: HEMOGLOBIN A1C 7.5 % (4.8-5.6)
[2021-08-02 03:00] VITALS: BP 137/85
[2021-08-02 07:00] VITALS: BP 133/87
[2021-08-02 07:14] LABS: BASO % 1 % (0-3); EOS % 0 % (0-3); HEMATOCRIT 34.6 % (36.0-47.0); HEMOGLOBIN 11.8 g/dL (12.0-15.5); LYMPH # 1.9 x10^3/uL (1.0-4.8); LYMPH % 26 % (24-48); MEAN CORPUSCULAR HEMOGLOBIN 36 pg (25-35); MEAN CORPUSCULAR HGB CONC 34 g/dL (31-37); MEAN CORPUSCULAR VOLUME 104 fL (79-100); MONO # 0.5 x10^3/uL (0.0-1.1); MONO % 7 % (0-9); NEUT # 4.7 x10^3/uL (1.8-7.7); NEUT % 66 % (31-73); PLATELET COUNT 181 x10^3/uL (140-400); RED BLOOD COUNT 3.33 x10^6/uL (3.50-5.40); RED CELL DISTRIBUTION WIDTH 13.3 % (11.5-14.5); WHITE BLOOD COUNT 7.1 x10^3/uL (4.0-11.0)
[2021-08-02 07:33] LABS: ALBUMIN 3.5 g/dL (3.4-5.0); ALBUMIN/GLOBULIN RATIO 0.7 (1.0-1.7); CREATININE 0.7 mg/dL (0.6-1.0); GFR 105.5; TOTAL BILIRUBIN 0.9 mg/dL (0.2-1.0); TOTAL PROTEIN 8.2 g/dL (6.4-8.2)
[2021-08-02] MEDS: PANTOPRAZOLE IV PUSH 40 MG VIAL. IVP SCH (08:31)
--- NOTE | 2021-08-02 08:39 | PDOC ---
IM PROGRESS NOTES- Subjective Subjective Nausea is improving slowly. No complaints of diarrhea. No complaints of dysuria. Running fever Objective Vitals/I&O Vital Signs Date Time Temp Pulse Resp B/P (MAP) Pulse Ox O2 Delivery O2 Flow Rate FiO2 08/02/21 03:00 99.8 96 18 137/85 (102) 95 Room Air 99.8 I & O 08/01/21 08/01/21 08/02/21 15:00 23:00 07:00 Intake Total 1000 ml 1100 ml 1200 ml Balance 1000 ml 1100 ml 1200 ml Physical Exam Physical Exam General Appearance - alert, weak and in no distress Chest - decreased breath sounds at bases Heart - S1 and S2 normal Abdomen - soft, non tender, BS + Neurological - alert and oriented Musculoskeletal - generalized weakness Extremities - no edema Labs Laboratory Tests Test 08/01/21 08:59 08/01/21 09:57 08/01/21 10:05 08/01/21 10:23 Glucose (Fingerstick) 316 mg/dL (70-99) H White Blood Count 9.6 x10^3/uL (4.0-11.0) Red Blood Count 3.56 x10^6/uL (3.50-5.40) Hemoglobin 12.7 g/dL (12.0-15.5) Hematocrit 36.9 % (36.0-47.0) Mean Corpuscular Volume 104 fL (79-100) H Mean Corpuscular Hemoglobin 36 pg (25-35) H Mean Corpuscular Hemoglobin Concent 34 g/dL (31-37) Red Cell Distribution Width 13.4 % (11.5-14.5) Platelet Count 223 x10^3/uL (140-400) Neutrophils (%) (Auto) 92 % (31-73) H Lymphocytes (%) (Auto) 5 % (24-48) L Monocytes (%) (Auto) 3 % (0-9) Eosinophils (%) (Auto) 0 % (0-3) Basophils (%) (Auto) 1 % (0-3) Neutrophils # (Auto) 8.8 x10^3/uL (1.8-7.7) H Lymphocytes # (Auto) 0.5 x10^3/uL (1.0-4.8) L Monocytes # (Auto) 0.3 x10^3/uL (0.0-1.1) Eosinophils # (Auto) 0.0 x10^3/uL (0.0-0.7) Basophils # (Auto) 0.1 x10^3/uL (0.0-0.2) Sodium Level 139 mmol/L (136-145) Potassium Level 3.7 mmol/L (3.5-5.1) Chloride Level 94 mmol/L (98-107) L Carbon Dioxide Level 32 mmol/L (21-32) Anion Gap 13 (6-14) Blood Urea Nitrogen 8 mg/dL (7-20) Creatinine 1.0 mg/dL (0.6-1.0) Estimated GFR (Cockcroft-Gault) 69.9 BUN/Creatinine Ratio 8 (6-20) Glucose Level 291 mg/dL (70-99) H Hemoglobin A1c 7.5 % (4.8-5.6) H Calcium Level 8.9 mg/dL (8.5-10.1) Total Bilirubin 0.6 mg/dL (0.2-1.0) Aspartate Amino Transferase (AST) 43 U/L (15-37) H Alanine Aminotransferase (ALT) 47 U/L (14-59) Alkaline Phosphatase 118 U/L (46-116) H Troponin I Quantitative < 0.017 ng/mL (0.000-0.055) Total Protein 9.1 g/dL (6.4-8.2) H Albumin 4.3 g/dL (3.4-5.0) Albumin/Globulin Ratio 0.9 (1.0-1.7) L Lipase 333 U/L (73-393) Vitamin B12 Level 939 pg/mL (247-911) H Urine Collection Type Unknown Urine Color Yellow Urine Clarity Clear Urine pH 7.5 (<5.0-8.0) Urine Specific [place] 1.020 (1.000-1.030) Urine Protein 100 mg/dL (NEG-TRACE) Urine Glucose (UA) >=1000 mg/dL (NEG) Urine Ketones (Stick) 15 mg/dL (NEG) Urine Blood Trace (NEG) Urine Nitrite Negative (NEG) Urine Bilirubin Negative (NEG) Urine Urobilinogen Dipstick 1.0 mg/dL (0.2 mg/dL) Urine Leukocyte Esterase Negative (NEG) Urine RBC 3-5 /HPF (0-2) Urine WBC Occ /HPF (0-4) Urine Squamous Epithelial Cells Mod /LPF Urine Bacteria Few /HPF (0-FEW) Urine Opiates Screen Neg (NEG) Urine Methadone Screen Neg (NEG) Urine Barbiturates Neg (NEG) Urine Phencyclidine Screen Neg (NEG) Urine Amphetamine/Methamphetamine Neg (NEG) Urine Benzodiazepines Screen Neg (NEG) Urine Cocaine Screen Neg (NEG) Urine Cannabinoids Screen Neg (NEG) Urine Ethyl Alcohol Neg (NEG) POC Urine HCG, Qualitative Hcg negative (Negative) Test 08/01/21 13:56 08/01/21 19:44 08/02/21 06:25 08/02/21 07:47 SARS-CoV-2 Antigen (Rapid) Negative (NEGATIVE) Glucose (Fingerstick) 183 mg/dL (70-99) H 166 mg/dL (70-99) H White Blood Count 7.1 x10^3/uL (4.0-11.0) Red Blood Count 3.33 x10^6/uL (3.50-5.40) L Hemoglobin 11.8 g/dL (12.0-15.5) L Hematocrit 34.6 % (36.0-47.0) L Mean Corpuscular Volume 104 fL (79-100) H Mean Corpuscular Hemoglobin 36 pg (25-35) H Mean Corpuscular Hemoglobin Concent 34 g/dL (31-37) Red Cell Distribution Width 13.3 % (11.5-14.5) Platelet Count 181 x10^3/uL (140-400) Neutrophils (%) (Auto) 66 % (31-73) Lymphocytes (%) (Auto) 26 % (24-48) Monocytes (%) (Auto) 7 % (0-9) Eosinophils (%) (Auto) 0 % (0-3) Basophils (%) (Auto) 1 % (0-3) Neutrophils # (Auto) 4.7 x10^3/uL (1.8-7.7) Lymphocytes # (Auto) 1.9 x10^3/uL (1.0-4.8) Monocytes # (Auto) 0.5 x10^3/uL (0.0-1.1) Eosinophils # (Auto) 0.0 x10^3/uL (0.0-0.7) Basophils # (Auto) 0.0 x10^3/uL (0.0-0.2) Sodium Level 140 mmol/L (136-145) Potassium Level 3.0 mmol/L (3.5-5.1) L Chloride Level 99 mmol/L (98-107) Carbon Dioxide Level 33 mmol/L (21-32) H Anion Gap 8 (6-14) Blood Urea Nitrogen 4 mg/dL (7-20) L Creatinine 0.7 mg/dL (0.6-1.0) Estimated GFR (Cockcroft-Gault) 105.5 BUN/Creatinine Ratio 6 (6-20) Glucose Level 166 mg/dL (70-99) H Calcium Level 8.0 mg/dL (8.5-10.1) L Magnesium Level 1.2 mg/dL (1.8-2.4) L Total Bilirubin 0.9 mg/dL (0.2-1.0) Aspartate Amino Transferase (AST) 33 U/L (15-37) Alanine Aminotransferase (ALT) 35 U/L (14-59) Alkaline Phosphatase 99 U/L (46-116) Total Protein 8.2 g/dL (6.4-8.2) Albumin 3.5 g/dL (3.4-5.0) Albumin/Globulin Ratio 0.7 (1.0-1.7) L Laboratory Tests 08/01/21 09:57 08/02/21 06:25 Laboratory Tests 08/01/21 09:57 08/02/21 06:25 Meds Current Medications Medications (Trade) Dose Ordered Sig/Raheem Route PRN Reason Start Time Stop Time Status Last Admin Dose Admin Ondansetron HCl (Zofran) 4 mg 1X ONCE IVP 08/01/21 09:00 08/01/21 09:01 DC 08/01/21 10:08 Sodium Chloride 1,000 ml @ 1,000 mls/hr 1X ONCE IV 08/01/21 09:00 08/01/21 09:59 DC 08/01/21 10:09 Morphine Sulfate (Morphine Sulfate) 4 mg 1X ONCE IVP 08/01/21 09:00 08/01/21 09:01 DC 08/01/21 10:08 Iohexol (Omnipaque 300 Mg/ml) 75 ml 1X ONCE IV 08/01/21 11:00 08/01/21 11:01 DC 08/01/21 11:01 Ondansetron HCl (Zofran) 4 mg 1X ONCE IVP 08/01/21 11:00 08/01/21 11:01 DC 08/01/21 11:04 Prochlorperazine Edisylate (Compazine) 10 mg 1X ONCE IV 08/01/21 12:30 08/01/21 12:31 DC 08/01/21 13:50 Diphenhydramine HCl (Benadryl) 25 mg 1X ONCE IVP 08/01/21 12:30 08/01/21 12:31 DC 08/01/21 13:50 Sodium Chloride 1,000 ml @ 1,000 mls/hr 1X ONCE IV 08/01/21 12:30 08/01/21 13:29 DC 08/01/21 13:49 Multi-Ingredient Mouthwash/Gargle (Gi Cocktail) 20 ml PRN QID PRN PO CHEST PAIN 08/01/21 13:15 08/01/21 13:50 Pantoprazole Sodium (PROTONIX VIAL for IV PUSH) 40 mg DAILY IVP 08/01/21 15:45 08/01/21 16:40 Potassium Chloride/Sodium Chloride 1,000 ml @ 100 mls/hr Q10H IV 08/01/21 20:00 08/02/21 05:04 Insulin Glargine (Lantus Syringe) 10 unit Q12HR SQ 08/01/21 21:00 08/01/21 20:39 Assessment Assessment 1. Acute intractable vomiting. 2. Acute gastritis. 3. Electrolyte imbalance. 4. Hypertension. 5. Diabetes mellitus type 2, not controlled. 6. Vitamin B12 deficiency. 7. Depression. 8. Alcoholism. 9. Hyperlipidemia. PLAN: Continue IV fluids. Continue IV Protonix. Hold most of the oral medications for now. IV hydralazine p.r.n. for hypertension. Consult Dr. Kimble for GI evaluation and management. I will start her on sliding scale insulin and lower dose of Basaglar as she is not able to eat. Recheck labs in a.m. The patient is strongly advised to avoid alcohol. For details, please refer to the orders. Diabetes-hemoglobin A1c. Continue insulin and sliding scale insulin and fingersticks. Fever etiology not clear. Query aspiration. Query gastroenteritis. Order chest x-ray, consult Dr. Hoang Kolb for infectious disease evaluation and management. The patient is strongly advised to avoid alcohol. Hypertension. Monitor and adjust medications. Restart metoprolol. Hold amlodipine, hydrochlorothiazide. Hypokalemia. K 3 .Replace potassium. If patient continues to improve slowly, then will discharge her tomorrow. Advance diet as tolerated. Plan Plan For more details regarding further plans, please refer to the orders. Justifications for Admission Other Justification SAM REAVES MD Aug 02, 2021 08:39
[2021-08-02] MEDS: INSULIN LISPRO 300 UNITS/3 ML VIAL. SQ SCH ×3 (08:41→17:41)
[2021-08-02] MEDS: METOPROLOL SUCC 24HR ER 100 MG TAB.ER.24H. PO SCH ×2 (10:21→22:01)
[2021-08-02] MEDS: POTASSIUM CHLORIDE 10 MEQ TABLET.ER. PO SCH ×2 (10:21→17:39)
[2021-08-02] MEDS: POTASSIUM CHLORIDE 10MEQ 100 ML IV SCH ×4 (10:25→13:48)
[2021-08-02] MEDS: INSULIN GLARGINE SYRINGE. SQ SCH ×2 (10:28→22:04)
--- NOTE | 2021-08-02 10:29 | PDOC ---
Date of Service: DATE: 08/02/21 TIME: 10:23 Subjective: Subjective: Feels better - eating regular diet w/o n/v or abd pain. Objective: Objective: Tmax 99.8 - has ID consult for fever. Vital Signs: Vital Signs Date Time Temp Pulse Resp B/P (MAP) Pulse Ox O2 Delivery O2 Flow Rate FiO2 08/02/21 07:00 98.7 102 18 133/87 (102) 96 98.7 08/02/21 03:00 Room Air Labs: Laboratory Tests Test 08/01/21 13:56 08/01/21 19:44 08/02/21 06:25 08/02/21 07:47 SARS-CoV-2 RNA (BRENDAN) Negative SARS-CoV-2 Antigen (Rapid) Negative Glucose (Fingerstick) 183 mg/dL 166 mg/dL White Blood Count 7.1 x10^3/uL Red Blood Count 3.33 x10^6/uL Hemoglobin 11.8 g/dL Hematocrit 34.6 % Mean Corpuscular Volume 104 fL Mean Corpuscular Hemoglobin 36 pg Mean Corpuscular Hemoglobin Concent 34 g/dL Red Cell Distribution Width 13.3 % Platelet Count 181 x10^3/uL Neutrophils (%) (Auto) 66 % Lymphocytes (%) (Auto) 26 % Monocytes (%) (Auto) 7 % Eosinophils (%) (Auto) 0 % Basophils (%) (Auto) 1 % Neutrophils # (Auto) 4.7 x10^3/uL Lymphocytes # (Auto) 1.9 x10^3/uL Monocytes # (Auto) 0.5 x10^3/uL Eosinophils # (Auto) 0.0 x10^3/uL Basophils # (Auto) 0.0 x10^3/uL Sodium Level 140 mmol/L Potassium Level 3.0 mmol/L Chloride Level 99 mmol/L Carbon Dioxide Level 33 mmol/L Anion Gap 8 Blood Urea Nitrogen 4 mg/dL Creatinine 0.7 mg/dL Estimated GFR (Cockcroft-Gault) 105.5 BUN/Creatinine Ratio 6 Glucose Level 166 mg/dL Calcium Level 8.0 mg/dL Magnesium Level 1.2 mg/dL Total Bilirubin 0.9 mg/dL Aspartate Amino Transf (AST/SGOT) 33 U/L Alanine Aminotransferase (ALT/SGPT) 35 U/L Alkaline Phosphatase 99 U/L Total Protein 8.2 g/dL Albumin 3.5 g/dL Albumin/Globulin Ratio 0.7 Imaging: CXR 08/02 pending PE: GEN: NAD - sitting on edge of bed, was talking on phone LUNGS: CTAB HEART: RRR ABD: S/ND/NT NEURO/PSYCH: A & O 3 A/P: Recurrent vomiting - resolved Macrocytic anemia (normal B12, h/o alcohol overuse), hypokalemia, hypomagnesemia DM (A1c 7.5) H/o GERD COVID negative -- Change to PO PPI since tolerating diet. Consider GES. Outpt colonoscopy. Justicifation of Admission Dx: Justifications for Admission: Justification of Admission Dx: Comment: JENS SNYDER Aug 02, 2021 10:29
--- NOTE | 2021-08-02 10:41 | NUR ---
SW following. Discussed with RN, pt from home alone, room air, clear liquid diet. ID and GI following. Rapid COVID-19 negative. RN advised possible discharge home tomorrow. SW will continue to follow.
[2021-08-02 11:00] VITALS: BP 136/94
--- NOTE | 2021-08-02 14:00 | CONS ---
DATE OF CONSULTATION: 08/02/2021 REFERRING PHYSICIAN: Dr. Chavez. REASON FOR CONSULTATION: Low-grade fever. HISTORY OF PRESENT ILLNESS: A 56-year-old female with history of diabetes, hyperlipidemia, hypertension, depression, Schatzki ring, mild chronic GERD, gastritis, presented to the ER with complaints of nausea and vomiting. The patient did not feel well. She did have some soreness in the throat, which she attributed to nausea and vomiting. Her temperature was 98.7 in the ER with white count of 9.6, neutrophils of 92%, lymphocyte of 5, glucose of 316. UA was negative except for glucose at 1000. SARS-COVID was negative. UDS was negative. CT abdomen and pelvis showed no acute abdominal or pelvic finding, hepatomegaly and hepatic steatosis. Chest x-ray was ordered from this morning as the patient had fever of 99.8 earlier this morning. The patient remains on room air, currently feels better. Denies any sick contact. Denies any history of travel. Denies being on antibiotics before admission. The patient had completed her COVID vaccination series in April. PAST MEDICAL HISTORY: Diabetes, hypertension, hyperlipidemia, depression, GERD, chronic gastritis, mild Schatzki ring per EGD, hepatic steatosis. CURRENT MEDICATIONS: Antibiotics and other medications reviewed in medication list. ALLERGIES: PENICILLIN, CODEINE, ERYTHROMYCIN BASE. REVIEW OF SYSTEMS: Negative except for above in HPI. PHYSICAL EXAMINATION: VITAL SIGNS: T-max 99.8, current temperature 98.7, pulse 102, respiratory rate 18, blood pressure 133/87, oxygen saturation 96% on room air. GENERAL: Alert, oriented x3, pleasant female, lying in bed comfortably, in no acute distress. HEENT: Normocephalic, atraumatic. Anicteric. No thrush. Oral mucosa moist. NECK: Supple, no JVD. LUNGS: Clear bilaterally. No wheezing. HEART: S1, S2. No gallops or murmurs. ABDOMEN: Soft, nontender, nondistended, no rebound or guarding. EXTREMITIES: No edema, no cyanosis. DERMATOLOGIC: Warm, dry, no generalized rash. PIV site looks clean. MUSCULOSKELETAL: No joint swelling, no decrease in range of motion. LABORATORY DATA: WBC 7.1, hemoglobin 11.8, hematocrit 34.6, platelets 181. Sodium 139, potassium 3.7, chloride 94, bicarbonate 32, BUN 8, creatinine 1.0, glucose 291, calcium 8.9, total bilirubin 0.6, AST 43, ALT 47, alkaline phosphatase 118. Troponin normal. SARS-COVID negative. UDS negative. MICRO: None. IMAGING: Chest x-ray pending. IMPRESSION: 1. Low-grade febrile illness. No localizing signs of infection at this time. 2. Nausea, vomiting, recurrent, resolved. 3. Diabetes mellitus. 4. History of gastroesophageal reflux disease, chronic gastritis, mild Schatzki ring. 5. COVID negative. 6. Microcytic anemia. 7. Depression. RECOMMENDATIONS: 1. Monitor observation off antibiotics at this time. 2. Follow up chest x-ray. 3. Maintain aspiration precaution. 4. Monitor labs. 5. Continue supportive care. Thank you, Dr. Chavez, for consulting Infectious Disease to participate in this patient's care. If you have any questions, do not hesitate to contact me. VENECIA DR: Sarina TID: [phone] [facility]
--- NOTE | 2021-08-02 14:00 | RAD ---
AP and Lateral Views of the Chest 08/02/2021 9:59 AM Indication: Reason: Fever Comparison: Chest radiograph January 29, 2017 Findings: Calcified granuloma noted in the right lung base. No pneumothorax or pleural effusion is se en. Heart size is top normal. No acute osseous changes are identified. IMPRESSION: No evidence of acute cardiopulmonary process Electronically signed by: Jacinto Waite MD (08/02/2021 1:04 PM) [id number]
[2021-08-02 15:00] VITALS: BP 130/81
[2021-08-02 19:00] VITALS: BP 129/83
[2021-08-02 23:00] VITALS: BP 132/91
[2021-08-03 03:00] VITALS: BP 127/86
[2021-08-03 07:00] VITALS: BP 147/91
[2021-08-03 07:23] LABS: BASO % 1 % (0-3); EOS # 0.1 x10^3/uL (0.0-0.7); EOS % 1 % (0-3); HEMATOCRIT 35.3 % (36.0-47.0); LYMPH # 1.9 x10^3/uL (1.0-4.8); LYMPH % 27 % (24-48); MEAN CORPUSCULAR HEMOGLOBIN 35 pg (25-35); MEAN CORPUSCULAR HGB CONC 34 g/dL (31-37); MEAN CORPUSCULAR VOLUME 104 fL (79-100); MONO # 0.4 x10^3/uL (0.0-1.1); MONO % 6 % (0-9); NEUT # 4.5 x10^3/uL (1.8-7.7); NEUT % 65 % (31-73); PLATELET COUNT 174 x10^3/uL (140-400); RED CELL DISTRIBUTION WIDTH 13.3 % (11.5-14.5); WHITE BLOOD COUNT 6.9 x10^3/uL (4.0-11.0)
[2021-08-03] MEDS: INSULIN LISPRO 300 UNITS/3 ML VIAL. SQ SCH (07:30)
[2021-08-03] MEDS ORDERED: PANTOPRAZOLE 40 MG TABLET.DR. PO SCH (07:30)
[2021-08-03 07:48] LABS: ALBUMIN 3.4 g/dL (3.4-5.0); ALBUMIN/GLOBULIN RATIO 0.7 (1.0-1.7); CALCIUM 7.5 mg/dL (8.5-10.1); CREATININE 0.8 mg/dL (0.6-1.0); GFR 90.4; POTASSIUM 3.5 mmol/L (3.5-5.1); TOTAL BILIRUBIN 0.9 mg/dL (0.2-1.0); TOTAL PROTEIN 8.2 g/dL (6.4-8.2)
--- NOTE | 2021-08-03 08:50 | PDOC3 ---
IM DISCHARGE SUMMARY Date of Admission Date of Admission Date of Admission: Aug 01, 2021 at 13:39 Date of Discharge Date of Discharge August 03, 2021 Primary Diagnosis Primary Diagnosis 1. Acute intractable vomiting. 2. Acute gastritis. 3. Electrolyte imbalance. 4. Hypertension. 5. Diabetes mellitus type 2, not controlled. 6. Vitamin B12 deficiency. 7. Depression. 8. Alcoholism. 9. Hyperlipidemia. Consults Consults Javed Kimble MD; Hoang Kolb MD Labs Labs Laboratory Tests Test 08/02/21 11:36 08/02/21 17:11 08/02/21 19:18 08/03/21 06:40 Glucose (Fingerstick) 208 mg/dL (70-99) H 162 mg/dL (70-99) H 195 mg/dL (70-99) H White Blood Count 6.9 x10^3/uL (4.0-11.0) Red Blood Count 3.40 x10^6/uL (3.50-5.40) L Hemoglobin 12.0 g/dL (12.0-15.5) Hematocrit 35.3 % (36.0-47.0) L Mean Corpuscular Volume 104 fL (79-100) H Mean Corpuscular Hemoglobin 35 pg (25-35) Mean Corpuscular Hemoglobin Concent 34 g/dL (31-37) Red Cell Distribution Width 13.3 % (11.5-14.5) Platelet Count 174 x10^3/uL (140-400) Neutrophils (%) (Auto) 65 % (31-73) Lymphocytes (%) (Auto) 27 % (24-48) Monocytes (%) (Auto) 6 % (0-9) Eosinophils (%) (Auto) 1 % (0-3) Basophils (%) (Auto) 1 % (0-3) Neutrophils # (Auto) 4.5 x10^3/uL (1.8-7.7) Lymphocytes # (Auto) 1.9 x10^3/uL (1.0-4.8) Monocytes # (Auto) 0.4 x10^3/uL (0.0-1.1) Eosinophils # (Auto) 0.1 x10^3/uL (0.0-0.7) Basophils # (Auto) 0.0 x10^3/uL (0.0-0.2) Sodium Level 136 mmol/L (136-145) Potassium Level 3.5 mmol/L (3.5-5.1) Chloride Level 98 mmol/L (98-107) Carbon Dioxide Level 29 mmol/L (21-32) Anion Gap 9 (6-14) Blood Urea Nitrogen 5 mg/dL (7-20) L Creatinine 0.8 mg/dL (0.6-1.0) Estimated GFR (Cockcroft-Gault) 90.4 BUN/Creatinine Ratio 6 (6-20) Glucose Level 173 mg/dL (70-99) H Calcium Level 7.5 mg/dL (8.5-10.1) L Total Bilirubin 0.9 mg/dL (0.2-1.0) Aspartate Amino Transferase (AST) 60 U/L (15-37) H Alanine Aminotransferase (ALT) 39 U/L (14-59) Alkaline Phosphatase 99 U/L (46-116) Total Protein 8.2 g/dL (6.4-8.2) Albumin 3.4 g/dL (3.4-5.0) Albumin/Globulin Ratio 0.7 (1.0-1.7) L Test 08/03/21 07:44 Glucose (Fingerstick) 212 mg/dL (70-99) H Laboratory Tests 08/03/21 06:40 Laboratory Tests 08/03/21 06:40 Brief hospital course Brief hospital course This is a 56-year-old female who has a history of diabetes mellitus type 2 that is not controlled, hypertension, alcoholism, started having severe nausea and vomiting since 5:00 this morning. Nausea and vomiting has been intractable, so she came to the emergency room where she continued to have a lot of nausea and vomiting. She was given IV fluids, IV Zofran, IV Compazine, IV Protonix and multiple medications and finally it was decided to go ahead and admit her for further evaluation and management. The patient denies any fever, cold, cough, congestion. She has occasional diarrhea. She denies any bleeding, although the vomitus was dark. She denies any cold, cough, congestion, chest pains. The last time she had alcohol was on Sunday and about three to four drinks of vodka. She drinks once a week only now and she is trying to quit. She denies eating anything unusual. Because of her intractable nausea and vomiting, the patient was admitted for further evaluation and management. For more details regarding the past history, family history, social history, surgical history and other details, please refer to the H&P. Continue IV fluids. Continue IV Protonix. Hold most of the oral medications for now. IV hydralazine p.r.n. for hypertension. Consult Dr. Kimble for GI evaluation and management. I will start her on sliding scale insulin and lower dose of Basaglar as she is not able to eat. Recheck labs in a.m. The patient is strongly advised to avoid alcohol. Diabetes-hemoglobin A1c. Continue insulin and sliding scale insulin and fingersticks. She was not taking NovoLog insulin at home. Take Basaglar 30 units twice daily and NovoLog 10 units twice daily before meals at home. Resume gabapentin Fever etiology not clear-May be due to gastroenteritis. Chest x-ray did not show any pneumonia consult Dr. Hoang Kolb for infectious disease evaluation and management. The patient is strongly advised to avoid alcohol. Hypertension. Monitor and adjust medications. Restart metoprolol. Restart amlodipine today. Hold hydrochlorothiazide. Hypokalemia. K 3 .potassium is 3.5 today. Patient is tolerating diet. Discontinue IV fluids. Adjust some of the home medications. Increase insulin. Okay to discharge home today. Follow-up in the office in 5 days. Patient will follow up with Dr. Kimble as outpatient for colonoscopy and gastric emptying study Medications Medications reviewed and reconciled for discharge. Home Meds Active Scripts Pantoprazole Sodium (PANTOPRAZOLE SODIUM ) 40 Mg Tablet., 40 MG PO DAILYAC for GERD for 30 Days, #30 TAB 5 Refills Prov:SAM REAVES MD 03/10/21 Magnesium Oxide (MAGNESIUM OXIDE) 400 Mg Tablet, 800 MG PO TID for Low MG for 30 Days, #180 TAB Prov:SAM REAVES MD 03/10/21 Ondansetron (ONDANSETRON ODT) 4 Mg Tab.rapdis, 1 TAB PO PRN Q6-8HRS for Nausea,vomiting, #20 TAB Prov:SAM REAVES MD 03/10/21 Reported Medications Turmeric/Turmeric Root Extract (Turmeric 500 mg Capsule) 1 Each Capsule, 1 CAP PO DAILY for supplement for 30 Days, #30 CAP 0 Refills 08/01/21 Diclofenac Sodium (Voltaren Arthritis Pain) 20 Gm Gel..gram., 20 GM TP BID for arthritis, EACH 08/01/21 Tizanidine Hcl (TIZANIDINE HCL) 4 Mg Tablet, 1 TAB PO QHS for sleep, muscle tension, #30 TAB 08/01/21 Thiamine Hcl (VITAMIN B-1) 100 Mg Tablet, 1 TAB PO DAILY for supplement for 30 Days, #30 TAB 0 Refills 08/01/21 Potassium Chloride (POTASSIUM CHLORIDE ) 10 Meq Tab.sr.24h, 10 MEQ PO BID for SUPPLEMENT, TAB.SR 08/01/21 Metoprolol Succinate (METOPROLOL SUCCINATE ( XL )) 100 Mg Tab.er.24h, 1 TAB PO BID for blood pressure, #30 TAB 5 Refills 08/01/21 Hydrochlorothiazide (HYDROCHLOROTHIAZIDE TABLET) 12.5 Mg Tablet, 25 MG PO DAILY for DIURETIC, TAB 0 Refills 08/01/21 Insulin Lispro (HUMALOG) 100 Unit/1 Ml Vial, 40 UNIT SQ DAILY for diabetes, EACH 08/01/21 Acyclovir (ACYCLOVIR) 400 Mg Tablet, 1 TAB PO TID for antiviral, #30 TAB 08/01/21 Gabapentin (GABAPENTIN) 600 Mg Tablet, 300 MG PO TID for NEUROGENIC PAIN, TAB 08/01/21 Cyanocobalamin (Vitamin B-12) (B-12) 5,000 Mcg Tab.subl, 1 TAB SL DAILY for supplement for 30 Days, #30 TAB 0 Refills 08/01/21 Biotin (BIOTIN) 1 Mg Capsule, 1 CAP PO DAILY for supplement for 30 Days, #30 CAP 0 Refills 08/01/21 Insulin Glargine,Hum.rec.anlog (Basaglar Kwikpen U-100) 100 Unit/1 Ml Insuln.p en, 45 UNIT SQ BID for diabetes, EACH 08/01/21 Duloxetine Hcl (CYMBALTA) 30 Mg Capsule.dr, 1 CAP PO DAILY for depression, #30 CAP 5 Refills 03/09/21 Glipizide (GLIPIZIDE) 5 Mg Tablet, 1 TAB PO BID for DM, #90 TAB 3 Refills 03/09/21 Amlodipine Besylate (AMLODIPINE BESYLATE) 10 Mg Tablet, 10 MG PO DAILY for HTN, TAB 03/09/21 Atorvastatin Calcium (ATORVASTATIN CALCIUM) 20 Mg Tablet, 20 MG PO HS for FOR CHOLESTEROL, #30 TAB 0 Refills 03/09/21 Allergy Allergies Coded Allergies Type Severity Reaction Last Updated Verified Penicillins Allergy Intermediate Rash 03/10/21 Yes codeine Adverse Reaction Mild Nausea and Vomiting 03/10/21 Yes erythromycin base Adverse Reaction Mild Nausea and Vomiting 03/10/21 Yes Follow up in 5 days. DISPOSITION: Home Comments Discharge Management - 35 minutes. For other details please refer to discharge instructions Justicifation of Admission Dx: Justifications for Admission: Justification of Admission Dx: Comment: SAM REAVES MD Aug 03, 2021 08:50
[2021-08-03] MEDS ORDERED: INSU100V6 SQ (09:10)
[2021-08-03] MEDS ORDERED: PANT40TA77 PO (09:10)
[2021-08-03] MEDS ORDERED: INSU100I32 SQ (09:10)
--- NOTE | 2021-08-03 09:12 | DISCH ---
DISCHARGE INSTRUCTIONS Condition on Discharge Condition on Discharge: Stable Activity After Discharge Activity Instructions for Disc: Activity as tolerated Exercise Instruction after Dis: Progress as tolerated Diet after Discharge Diet after Discharge: Diabetic No Calorie Level (Cardiac) Diet Texture: Regular Wound Incision Care Wound/Incision Care: No wound care needed Checks after Discharge Checks after discharge: Check blood press - daily, Check blood sugar, ac/hs DC Comment: Avoid alcohol. Contacting the DRCayla after DC Call your doctor for: Concerns you may have Follow-Up Follow up with: Dr. Sam Reaves in 5 days Follow Up With: Dr. Kimble Treatment/Equipment after DC Adaptive Equipment Issued: None SAM REAVES MD Aug 03, 2021 09:12
--- NOTE | 2021-08-03 09:27 | PDOC ---
Date of Service: DATE: 08/03/21 TIME: 09:24 Subjective: Subjective: No n/v, no abd pain. Stooling without issue. Objective: Objective: No GI concerns per nurse. Vital Signs: Vital Signs Date Time Temp Pulse Resp B/P (MAP) Pulse Ox O2 Delivery O2 Flow Rate FiO2 08/03/21 07:00 98.3 88 18 147/91 (109) 98 98.3 08/03/21 03:00 Room Air Labs: Laboratory Tests Test 08/02/21 11:36 08/02/21 17:11 08/02/21 19:18 08/03/21 06:40 Glucose (Fingerstick) 208 mg/dL 162 mg/dL 195 mg/dL White Blood Count 6.9 x10^3/uL Red Blood Count 3.40 x10^6/uL Hemoglobin 12.0 g/dL Hematocrit 35.3 % Mean Corpuscular Volume 104 fL Mean Corpuscular Hemoglobin 35 pg Mean Corpuscular Hemoglobin Concent 34 g/dL Red Cell Distribution Width 13.3 % Platelet Count 174 x10^3/uL Neutrophils (%) (Auto) 65 % Lymphocytes (%) (Auto) 27 % Monocytes (%) (Auto) 6 % Eosinophils (%) (Auto) 1 % Basophils (%) (Auto) 1 % Neutrophils # (Auto) 4.5 x10^3/uL Lymphocytes # (Auto) 1.9 x10^3/uL Monocytes # (Auto) 0.4 x10^3/uL Eosinophils # (Auto) 0.1 x10^3/uL Basophils # (Auto) 0.0 x10^3/uL Sodium Level 136 mmol/L Potassium Level 3.5 mmol/L Chloride Level 98 mmol/L Carbon Dioxide Level 29 mmol/L Anion Gap 9 Blood Urea Nitrogen 5 mg/dL Creatinine 0.8 mg/dL Estimated GFR (Cockcroft-Gault) 90.4 BUN/Creatinine Ratio 6 Glucose Level 173 mg/dL Calcium Level 7.5 mg/dL Total Bilirubin 0.9 mg/dL Aspartate Amino Transf (AST/SGOT) 60 U/L Alanine Aminotransferase (ALT/SGPT) 39 U/L Alkaline Phosphatase 99 U/L Total Protein 8.2 g/dL Albumin 3.4 g/dL Albumin/Globulin Ratio 0.7 Test 08/03/21 07:44 Glucose (Fingerstick) 212 mg/dL PE: GEN: NAD LUNGS: CTAB HEART: RRR ABD: S/ND/NT NEURO/PSYCH: A & O 3 A/P: Vomiting - quickly resolved Macrocytosis (normal B12), elevated AST, h/o alcohol overuse, hepatic steatosis DM (A1c 7.5) H/o GERD -- DC per primary on PPI QD. Our office will contact to schedule screening colonoscopy. Consider GES as outpt if n/v recurrent. Justicifation of Admission Dx: Justifications for Admission: Justification of Admission Dx: Comment: JENS SNYDER Aug 03, 2021 09:27
[2021-08-03] MEDS: POTASSIUM CHLORIDE 10 MEQ TABLET.ER. PO SCH (09:40)
[2021-08-03] MEDS: METOPROLOL SUCC 24HR ER 100 MG TAB.ER.24H. PO SCH (09:41)
[2021-08-03 09:45] VITALS: BP 147/91
--- NOTE | 2021-08-03 09:51 | PDOC ---
Infectious Disease Note Subjective: Subjective Patient without complaints Feels much better Eager for discharge home today Vital Signs: Vital Signs Vital Signs Date Time Temp Pulse Resp B/P (MAP) Pulse Ox O2 Delivery O2 Flow Rate FiO2 08/03/21 09:45 88 147/91 08/03/21 07:00 98.3 18 98 98.3 08/03/21 03:00 Room Air Physical Exam: PHYSICAL EXAM GENERAL: Alert, oriented x3, pleasant female, lying in bed comfortably, in no acute distress. HEENT: Normocephalic, atraumatic. Anicteric. No thrush. Oral mucosa moist. NECK: Supple, no JVD. LUNGS: Clear bilaterally. No wheezing. HEART: S1, S2. No gallops or murmurs. ABDOMEN: Soft, nontender, nondistended, no rebound or guarding. EXTREMITIES: No edema, no cyanosis. DERMATOLOGIC: Warm, dry, no generalized rash. PIV site looks clean. MUSCULOSKELETAL: No joint swelling, no decrease in range of motion. Medications: Inpatient Meds: Medications reviewed. Labs: Lab Laboratory Tests Test 08/02/21 11:36 08/02/21 17:11 08/02/21 19:18 08/03/21 06:40 Glucose (Fingerstick) 208 mg/dL (70-99) 162 mg/dL (70-99) 195 mg/dL (70-99) White Blood Count 6.9 x10^3/uL (4.0-11.0) Red Blood Count 3.40 x10^6/uL (3.50-5.40) Hemoglobin 12.0 g/dL (12.0-15.5) Hematocrit 35.3 % (36.0-47.0) Mean Corpuscular Volume 104 fL (79-100) Mean Corpuscular Hemoglobin 35 pg (25-35) Mean Corpuscular Hemoglobin Concent 34 g/dL (31-37) Red Cell Distribution Width 13.3 % (11.5-14.5) Platelet Count 174 x10^3/uL (140-400) Neutrophils (%) (Auto) 65 % (31-73) Lymphocytes (%) (Auto) 27 % (24-48) Monocytes (%) (Auto) 6 % (0-9) Eosinophils (%) (Auto) 1 % (0-3) Basophils (%) (Auto) 1 % (0-3) Neutrophils # (Auto) 4.5 x10^3/uL (1.8-7.7) Lymphocytes # (Auto) 1.9 x10^3/uL (1.0-4.8) Monocytes # (Auto) 0.4 x10^3/uL (0.0-1.1) Eosinophils # (Auto) 0.1 x10^3/uL (0.0-0.7) Basophils # (Auto) 0.0 x10^3/uL (0.0-0.2) Sodium Level 136 mmol/L (136-145) Potassium Level 3.5 mmol/L (3.5-5.1) Chloride Level 98 mmol/L (98-107) Carbon Dioxide Level 29 mmol/L (21-32) Anion Gap 9 (6-14) Blood Urea Nitrogen 5 mg/dL (7-20) Creatinine 0.8 mg/dL (0.6-1.0) Estimated GFR (Cockcroft-Gault) 90.4 BUN/Creatinine Ratio 6 (6-20) Glucose Level 173 mg/dL (70-99) Calcium Level 7.5 mg/dL (8.5-10.1) Total Bilirubin 0.9 mg/dL (0.2-1.0) Aspartate Amino Transf (AST/SGOT) 60 U/L (15-37) Alanine Aminotransferase (ALT/SGPT) 39 U/L (14-59) Alkaline Phosphatase 99 U/L (46-116) Total Protein 8.2 g/dL (6.4-8.2) Albumin 3.4 g/dL (3.4-5.0) Albumin/Globulin Ratio 0.7 (1.0-1.7) Test 08/03/21 07:44 Glucose (Fingerstick) 212 mg/dL (70-99) Objective: Assessment: LABORATORY DATA: WBC 7.1, hemoglobin 11.8, hematocrit 34.6, platelets 181. Sodium 139, potassium 3.7, chloride 94, bicarbonate 32, BUN 8, creatinine 1.0, glucose 291, calcium 8.9, total bilirubin 0.6, AST 43, ALT 47, alkaline phosphatase 118. Troponin normal. SARS-COVID negative. UDS negative. MICRO: None. IMAGING: Chest x-ray pending. 1. Low-grade febrile illness. No localizing signs of infection at this time. Resolved 2. Nausea, vomiting, recurrent, resolved. 3. Diabetes mellitus. 4. History of gastroesophageal reflux disease, chronic gastritis, mild Schatzki ring. 5. COVID negative. 6. Microcytic anemia. 7. Depression. Plan: Plan of Care 1. Monitor observation off antibiotics at this time. 2. Patient can be discharged home from ID standpoint Discussed with at bedside TATIANA CASTILLO MD Aug 03, 2021 09:51
[2021-08-03] MEDS ORDERED: GABAPENTIN 300 MG CAPSULE. PO SCH (10:00)
[2021-08-03] MEDS ORDERED: INSULIN GLARGINE SYRINGE. SQ SCH (10:00)
[2021-08-03] MEDS ORDERED: MAGNESIUM OXIDE 400 MG TABLET PO SCH (10:00)
[2021-08-03] MEDS ORDERED: DULoxetine HCL 30 MG CAPSULE.DR PO SCH (10:00)
--- NOTE | 2021-08-03 10:36 | NUR ---
pt was discahrged home with self care, pt was escorted out to the main entrance by a [employer] and spouse, protonix script was renewed at pharm. Luis Miguel Carballo RN
[2021-08-03] MEDS ORDERED: ATORVASTATIN CALCIUM 20 MG TABLET PO SCH (21:00)
[2021-08-04] MEDS ORDERED: THIAMINE 100 MG TABLET. PO SCH (10:00)
== END 2021-08-03 10:10 | disposition home or self-care (01) ==
LOC: ER 08:32 → ED HOLD 13:39 → 5 SOUTH 16:22
PROVIDERS: ADMIT Internal Medicine; ATTEND Internal Medicine
DX: K29.00 Acute gastritis without bleeding (principal); Z20.822 Contact with and (suspected) exposure to COVID-19; R11.2 Nausea with vomiting, unspecified; E11.65 Type 2 diabetes mellitus with hyperglycemia; E78.00 Pure hypercholesterolemia, unspecified; E78.5 Hyperlipidemia, unspecified; E87.6 Hypokalemia; F10.20 Alcohol dependence, uncomplicated; F32.9 Major depressive disorder, single episode, unspecified; E87.8 Other disorders of electrolyte and fluid balance, not elsewhere classified; I10 Essential (primary) hypertension; R16.0 Hepatomegaly, not elsewhere classified; K76.0 Fatty (change of) liver, not elsewhere classified; E53.8 Deficiency of other specified B group vitamins; K29.50 Unspecified chronic gastritis without bleeding; E83.42 Hypomagnesemia; E87.5 Hyperkalemia; Z79.4 Long term (current) use of insulin; Z82.49 Family history of ischemic heart disease and other diseases of the circulatory system; Z98.890 Other specified postprocedural states; Z83.3 Family history of diabetes mellitus; Z98.891 History of uterine scar from previous surgery
CPT/HCPCS: 36415; 71046; 74177; 80053; 80307; 81001; 81025; 82607; 82962; 83036; 83690; 83735; 84484; 85025; 87426; 96361; 96365; 96366; 96372; 96375; 96376; 99285; C9113; G0378; J0780; J1200; J1815; J2270; J2405; J3480; J7030; Q9967; U0003; U0005; G0379